=== PATIENT | male | born 1940 | race Caucasian/White ===

== ENCOUNTER 2019-04-05 06:07 | Day surgery (SDC) | payer MEDICARE, BC ==
[2019-04-05] MEDS: Sodium Chloride 0.9% 1,000 ML IV SCH (07:07)
[2019-04-05] MEDS ORDERED: Propofol 200 MG/20 ML SDV ONE (07:38)
[2019-04-05] MEDS ORDERED: fentaNYL 100 MCG/2 ML SDV ONE (07:38)
[2019-04-05] MEDS: ceFAZolin 2 GM in Premix Bag 1 BAG IV ONE (07:45)
[2019-04-05] MEDS: Bupivacaine 0.5% 50 ML MDV INJECT ONE (08:03)
[2019-04-05] MEDS: Lidocaine 1% with EPINEPHrine 1:100,000 50 ML MDV INJECT ONE (08:03)
[2019-04-05 09:59] VITALS: BP 134/80
--- NOTE | 2019-04-09 07:57 | OR ---
DATE OF PROCEDURE: 04/05/2019 SURGEON: Lenin Mcmullen MD PROCEDURES: 1. Excision of posterior scalp lesion, 7.1 cm x 2.0 cm, squamous cell carcinoma (99675). 2. 4 mm excisional biopsy, anterior scalp. COMPLICATION: None. WEB PRODUCTION ARTIST: None. ANESTHESIA: MAC/local. RISKS: Risks, benefits, alternatives, and limitations including, but limited to infection, bleeding, and requirement for reoperation for additional margins, false positives and false negatives, and other risks not listed here were explained to the patient, who wished to proceed. PROCEDURE IN DETAIL: The patient was placed in a supine position. The anterior marked lesion was identified and anesthetized with 1% lidocaine mixed with Marcaine. First, 4 mm punch biopsy was performed. This was excised using 11 blade. This was then closed with 2 interrupted 3-0 Prolene sutures. The posterior lesion was then identified next. This would be excised full thickness down to the galea, as measured above. This was then marked with the double stitch left and single stitch anterior margins prior, before excision. This was then thoroughly irrigated. Simple flaps were then created to decrease the skin tension. These skin flaps were created by using electrocautery. This wound was then closed with 3-0 Vicryl in two layers and then a 4-0 Prolene in a running/interrupted fashion. A horizontal mattress suture was also placed using a 3-0 nylon suture. Border Lite dressings were then applied. The patient tolerated the procedure well. Lenin Mcmullen MD /[id number]
== END 2019-04-05 09:45 | disposition home or self-care (01) ==
LOC: JP.SDS 06:07
PROVIDERS: ATTEND Surgery
DX: D04.4 Carcinoma in situ of skin of scalp and neck (principal); L98.8 Other specified disorders of the skin and subcutaneous tissue; G47.33 Obstructive sleep apnea (adult) (pediatric); E78.5 Hyperlipidemia, unspecified; I25.10 Atherosclerotic heart disease of native coronary artery without angina pectoris; I12.9 Hypertensive chronic kidney disease with stage 1 through stage 4 chronic kidney disease, or unspecified chronic kidney disease; E11.22 Type 2 diabetes mellitus with diabetic chronic kidney disease; N18.3 Chronic kidney disease, stage 3 (moderate); E66.01 Morbid (severe) obesity due to excess calories; Z68.42 Body mass index [BMI] 45.0-49.9, adult; F41.9 Anxiety disorder, unspecified; G51.0 Bell's palsy; G62.9 Polyneuropathy, unspecified; Z79.4 Long term (current) use of insulin; Z88.6 Allergy status to analgesic agent; Z99.89 Dependence on other enabling machines and devices
CPT/HCPCS: 82962; 88305; J0690; J2704; J3010; J3490; J7030

== ENCOUNTER 2021-06-04 14:29 | Emergency (ER) | payer MEDICARE, BC ==
--- NOTE | 2021-06-04 16:57 | EDM.PDOC ---
ED HPI GENERAL MEDICAL PROBLEM - General Chief Complaint: Gastrointestinal Problem Stated Complaint: STOMACH ISSUES Time Seen by Provider: 06/04/21 16:20 Source of Information: Reports: Patient, Family, RN History Limitations: Reports: No Limitations - History of Present Illness INITIAL COMMENTS - FREE TEXT/NARRATIVE: 80 year old male presenting with abnormal lab results. The patient does not really know why he is here, but states the clinic called and told him to go to the ER. He reports that he has been having some GI issues recently with weight loss and trouble swallowing his pills, but states they changed his medications and he actually felt like he could swallow his pills normally today without any Gi upset. He has no other complaints at this time. Discussed the patient with Rosana Pérez PA-C, who told the patient to come to the ED due to worsening kidney function. He has had a slow increase in his creatinine and she sent him in for IVF. The patient states he is having normal urine output. Reports he is incontinent of urine, but has been having a normal amount of output. He reports he is eating and drinking normally without any issues and feels fine. Onset: Unknown/Unsure Duration: Getting Worse Improves with: Reports: None Worsens with: Reports: None Associated Symptoms: Reports: No Other Symptoms Abdominal Pain Score (Numeric/FACES): 0 (Feeling better now) - Related Data Allergies Allergy/AdvReac Type Severity Reaction Status Date / Time colchicine Allergy Indigestion Verified 06/04/21 16:44 Home Meds: Home Meds Aspirin [Low Dose Aspirin EC] 81 mg PO DAILY 11/25/16 [History] Dulaglutide [Trulicity] 1.5 mg SQ WEEKLY 11/25/16 [History] Furosemide [Lasix] 20 mg PO BID 11/25/16 [History] Gabapentin [Neurontin] 200 mg PO DAILY 11/25/16 [History] Metoprolol Tartrate 50 mg PO BID 11/25/16 [History] [place]-3 Fatty Acids [Fish Oil] 1,000 mg PO DAILY 11/25/16 [History] Probenecid 1,000 mg PO BID 11/25/16 [History] Tamsulosin [Tamsulosin 24 Hr] 0.4 mg PO DAILY 11/25/16 [History] diphenhydrAMINE [Benadryl] 50 mg PO DAILY PRN 11/25/16 [History] Potassium Chloride 20 meq PO DAILY 11/29/16 [History] metFORMIN HCl [Metformin HCl] 500 mg PO BID 11/29/16 [History] Acetaminophen [Acetaminophen Extra Strength] 1,000 mg PO BEDTIME 04/03/19 [History] Clopidogrel Bisulfate [Plavix] 75 mg PO DAILY 04/03/19 [History] Cranberry 500 mg PO DAILY 04/03/19 [History] Cyanocobalamin (Vitamin B12) [Vitamin B12] 2,000 mcg PO DAILY 04/03/19 [History] Magnesium Oxide 400 mg PO BID 04/03/19 [History] Nitroglycerin 0.4 mg SL ASDIRECTED 04/03/19 [History] atorvaSTATin [Lipitor] 80 mg PO DAILY 04/03/19 [History] buPROPion [Wellbutrin] 100 mg PO BID 04/03/19 [History] Amoxicillin 2,000 mg PO ASDIRECTED 05/03/21 [History] Gabapentin [Neurontin] 200 mg PO DAILY 05/03/21 [History] Losartan [Cozaar] 100 mg PO DAILY 05/03/21 [History] Pantoprazole Sodium [Protonix] 40 mg PO DAILY 05/03/21 [History] Pseudoephedrine HCl [Sudafed] 30 mg PO Q4H PRN 05/03/21 [History] polyethylene glycoL 3350 [MiraLAX] 17 gm PO DAILY PRN 05/03/21 [History] Past Medical History HEENT History: Reports: Allergic Rhinitis, Hard of Hearing, Impaired Vision Cardiovascular History: Reports: Heart Failure, Heart Valve Replacement, High Cholesterol, Hypertension, [place] Respiratory History: Reports: Asthma, Sleep Apnea Gastrointestinal History: Reports: Colon Polyp, Gastritis, GERD Genitourinary History: Reports: Diabetic Nephropathy Musculoskeletal History: Reports: Gout, Osteoarthritis, Other (See Below) Other Musculoskeletal History: R hip pain Neurological History: Reports: Concussion Other Neuro History: belspalsy 8 years ago Endocrine/Metabolic History: Reports: Diabetes, Type II, IDDM, Obesity/BMI 30+ Hematologic History: Reports: Blood Transfusion(s) Oncologic (Cancer) History: Reports: Squamous Cell Carcinoma Dermatologic History: Reports: Eczema - Infectious Disease History Infectious Disease History: Reports: Chicken Pox, Measles - Past Surgical History HEENT Surgical History: Reports: Tonsillectomy Cardiovascular Surgical History: Reports: Coronary Artery Stent, Valve Replacement, Other (See Below) Other Cardiovascular Surgeries/Procedures: aorta valve replacement 2 years ago Respiratory Surgical History: Reports: None GI Surgical History: Reports: Colonoscopy Male Surgical History: Reports: None Neurological Surgical History: Reports: None Musculoskeletal Surgical History: Reports: Knee Replacement, Other (See Below) Other Musculoskeletal Surgeries/Procedures:: knee replacement x2 Oncologic Surgical History: Reports: Other (See Below) Other Oncologic Surgeries/Procedures: Scalp excision squamous cell cancer Social & Family History - Family History Family Medical History: No Pertinent Family History - Caffeine Use Caffeine Use: Reports: None ED ROS GENERAL - Review of Systems Review Of Systems: Comprehensive ROS is negative, except as noted in HPI. ED EXAM, GENERAL - Physical Exam Exam: See Below Exam Limited By: No Limitations General Appearance: Alert, No Apparent Distress Nose: Normal Inspection Throat/Mouth: Normal Inspection, Other (MMM) Head: Atraumatic, Normocephalic Neck: Supple, Non-Tender, Full Range of Motion Respiratory/Chest: No Respiratory Distress, Lungs Clear, Normal Breath Sounds, No Accessory Muscle Use Cardiovascular: Normal Peripheral Pulses, Regular Rate, Rhythm GI/Abdominal: Soft, Non-Tender Extremities: Normal Range of Motion Neurological: Alert, Oriented, CN II-XII Intact, Normal Cognition, No Motor/Sensory Deficits Psychiatric: Normal Affect, Normal Mood Skin Exam: Warm, Dry Course - Vital Signs Last Recorded V/S: Last Vital Signs Temp 96.8 F L 06/04/21 17:13 Pulse 65 06/04/21 17:37 Resp 12 06/04/21 17:13 BP 95/60 06/04/21 17:37 Pulse Ox 97 06/04/21 17:37 - Orders/Labs/Meds Labs: Laboratory Tests 06/04/21 06/04/21 Range/Units 17:22 17:22 WBC 6.6 (4.5-11.0) K/uL RBC 4.09 L (4.30-5.90) M/uL Hgb 12.8 (12.0-15.0) g/dL Hct 38.8 L (40.0-54.0) % MCV 95 (80-98) fL MCH 31 (27-31) pg MCHC 33 (32-36) % Plt Count 159 (150-400) K/uL Neut % (Auto) 63.4 (36-66) % Lymph % (Auto) 20.1 L (24-44) % [place] % (Auto) 14.5 H (2-6) % Eos % (Auto) 1.5 L (2-4) % Baso % (Auto) 0.5 (0-1) % Sodium 143 (140-148) mmol/L Potassium 4.1 (3.6-5.2) mmol/L Chloride 103 (100-108) mmol/L Carbon Dioxide 33 H (21-32) mmol/L Anion Gap 11.1 (5.0-14.0) mmol/L BUN 38 H (7-18) mg/dL Creatinine 3.0 H (0.8-1.3) mg/dL Est Cr Clr Drug Dosing 20.92 mL/min Estimated GFR (MDRD) 20 L (>60) Glucose 98 (74-106) mg/dL Calcium 9.1 (8.5-10.1) mg/dL Total Bilirubin 0.6 (0.2-1.0) mg/dL AST 16 (15-37) U/L ALT 13 (12-78) U/L Alkaline Phosphatase 105 (46-116) U/L Total Protein 7.3 (6.4-8.2) g/dL Albumin 3.3 L (3.4-5.0) g/dL Globulin 4.0 H (2.3-3.5) g/dL Albumin/Globulin Ratio 0.8 L (1.2-2.2) Meds: Medications Discontinued Medications Generic Name Dose Route Start Last Admin Trade Name Freq PRN Reason Stop Dose Admin Sodium Chloride 1,000 mls @ 1,000 mls/hr 06/04/21 18:15 06/04/21 18:09 Normal Saline IV 1,000 mls/hr ASDIRECTED ANI Administration Departure - Departure Time of Disposition: 20:01 Disposition: Home, Self-Care 01 Condition: Good Clinical Impression: Creatinine elevation, [id number] kidney injury - Discharge Information Instructions: Acute Kidney Injury, Adult Referrals: Xander Ibarra MD [Primary Care Provider] - Forms: ED Department Discharge Additional Instructions: Follow up with your primary care provider as already scheduled on Monday to recheck your kidney function. Sepsis Event Note (ED) - Focused Exam Vital Signs: Vital Signs Temp Pulse Resp BP Pulse Ox 07/23/21 17:37 65 95/60 97 07/23/21 17:13 96.8 F L 63 12 100/50 L 98 06/04/21 16:58 63 12 100/50 L 98 06/04/21 16:07 96.8 F L 66 16 89/44 L 98 - Problem List Review Problem List Initiated/Reviewed/Updated: Yes - Assessment/Plan Assessment:: This is an 80 year old male presenting due to abnormal labs from the clinic. Patient has no complaints today and doesn't know why he is here. His initial BP was low with systolic in the 80's. An appropriately sized cuff was used to recheck and systolic was in the 100's which patient states is normal for him and he is asymptomatic at this time. I discussed the patient with ILIANA Bermudez, who sent the patient to the ED due to worsening creatinine and IVF therapy. I was able to review his recent labs. His creatinine in January of this year was 2.0, then 2.5 yesterday, and 2.88 today. Creatinine in the ED today is 3.0. While his kidney function is certainly worsening, there is no indication for urgent dialysis. I will give him a liter of IVF in the ED today, though I'm not convinced this will improve his renal function. He needs follow up in clinic for further evaluation of what his driving this decline, which he already has scheduled for Monday. He has no other complaints or concerning findings today to indicate need for additional evaluation. He will be discharged home with follow on Monday as scheduled. He was instructed to return to the ED for any new or worsening symptoms.
[2021-06-04 17:37] VITALS: BP 95/60; PULSE 65
[2021-06-04] MEDS ORDERED: Sodium Chloride 0.9% 1,000 ML IV SCH (18:15)
== END 2021-06-04 19:31 | disposition home or self-care (01) ==
LOC: JP.ED 14:29
DX: N17.9 Acute kidney failure, unspecified (principal); I13.0 Hypertensive heart and chronic kidney disease with heart failure and stage 1 through stage 4 chronic kidney disease, or unspecified chronic kidney disease; E11.22 Type 2 diabetes mellitus with diabetic chronic kidney disease; N18.9 Chronic kidney disease, unspecified; I50.9 Heart failure, unspecified; I25.2 Old myocardial infarction; E78.00 Pure hypercholesterolemia, unspecified; K21.9 Gastro-esophageal reflux disease without esophagitis; R94.4 Abnormal results of kidney function studies; E66.9 Obesity, unspecified; Z68.30 Body mass index [BMI] 30.0-30.9, adult; Z88.6 Allergy status to analgesic agent; Z79.82 Long term (current) use of aspirin; Z79.84 Long term (current) use of oral hypoglycemic drugs; Z79.02 Long term (current) use of antithrombotics/antiplatelets
CPT/HCPCS: 36415; 80053; 85025; 99283; J7030

== ENCOUNTER 2021-06-29 23:57 | Observation (INO) | payer MEDICARE, BC ==
[2021-06-30] MEDS ORDERED: Sodium Chloride 0.9% 1,000 ML IV SCH ×2 (00:45→02:30)
--- NOTE | 2021-06-30 00:45 | EDM.PDOC ---
ED HPI GENERAL MEDICAL PROBLEM - General Chief Complaint: Lower Extremity Injury/Pain Stated Complaint: MEDICAL VIA [facility] Time Seen by Provider: 06/30/21 00:39 Source of Information: Reports: Patient History Limitations: Reports: No Limitations - History of Present Illness INITIAL COMMENTS - FREE TEXT/NARRATIVE: pt got up without his cane and lost his balance. He now has some increased pain in the rt hip. He was also found to have quite a low bp when the ambulance arrived. Onset: Today, Sudden Duration: Hour(s): Location: Reports: Lower Extremity, Right, Other (pt did not hit his head. He is resting quite comfortable at this time. ) Associated Symptoms: Reports: No Other Symptoms Right Hip Pain Score (Numeric/FACES): 2 - Related Data Allergies Allergy/AdvReac Type Severity Reaction Status Date / Time colchicine Allergy Indigestion Verified 06/04/21 16:44 Home Meds: Home Meds Aspirin [Low Dose Aspirin EC] 81 mg PO DAILY 11/25/16 [History] Dulaglutide [Trulicity] 1.5 mg SQ WEEKLY 11/25/16 [History] Furosemide [Lasix] 20 mg PO BID 11/25/16 [History] Metoprolol Tartrate 50 mg PO BID 11/25/16 [History] [place]-3 Fatty Acids [Fish Oil] 1,000 mg PO DAILY 11/25/16 [History] Probenecid 1,000 mg PO BID 11/25/16 [History] Tamsulosin [Tamsulosin 24 Hr] 0.4 mg PO DAILY 11/25/16 [History] diphenhydrAMINE [Benadryl] 50 mg PO DAILY PRN 11/25/16 [History] Potassium Chloride 20 meq PO DAILY 11/29/16 [History] metFORMIN HCl [Metformin HCl] 250 mg PO BID 11/29/16 [History] Acetaminophen [Acetaminophen Extra Strength] 1,000 mg PO BEDTIME 04/03/19 [History] Clopidogrel Bisulfate [Plavix] 75 mg PO DAILY 04/03/19 [History] Cranberry 500 mg PO DAILY 04/03/19 [History] Cyanocobalamin (Vitamin B12) [Vitamin B12] 2,000 mcg PO DAILY 04/03/19 [History] Magnesium Oxide 400 mg PO BID 04/03/19 [History] Nitroglycerin 0.4 mg SL ASDIRECTED 04/03/19 [History] atorvaSTATin [Lipitor] 80 mg PO DAILY 04/03/19 [History] buPROPion [Wellbutrin] 100 mg PO BID 04/03/19 [History] Amoxicillin 2,000 mg PO ASDIRECTED 05/03/21 [History] Gabapentin [Neurontin] 200 mg PO DAILY PRN 05/03/21 [History] Losartan [Cozaar] 100 mg PO DAILY 05/03/21 [History] Pantoprazole Sodium [Protonix] 40 mg PO DAILY 05/03/21 [History] Pseudoephedrine HCl [Sudafed] 30 mg PO Q4H PRN 05/03/21 [History] polyethylene glycoL 3350 [MiraLAX] 17 gm PO DAILY PRN 05/03/21 [History] Diclofenac Sodium [Voltaren 1% Gel] 1 applic TOP TID PRN #1 tube 06/24/21 [Rx] Past Medical History HEENT History: Reports: Allergic Rhinitis, Hard of Hearing, Impaired Vision Cardiovascular History: Reports: Heart Failure, Heart Valve Replacement, High Cholesterol, Hypertension, [place] Respiratory History: Reports: Asthma, Sleep Apnea Gastrointestinal History: Reports: Colon Polyp, Gastritis, GERD Genitourinary History: Reports: Diabetic Nephropathy Musculoskeletal History: Reports: Gout, Osteoarthritis, Other (See Below) Other Musculoskeletal History: R hip pain Neurological History: Reports: Concussion, Other (See Below) Other Neuro History: bells palsy 8 years ago Endocrine/Metabolic History: Reports: Diabetes, Type II, IDDM, Obesity/BMI 30+ Hematologic History: Reports: Blood Transfusion(s) Oncologic (Cancer) History: Reports: Squamous Cell Carcinoma Dermatologic History: Reports: Eczema - Infectious Disease History Infectious Disease History: Reports: Chicken Pox, Measles - Past Surgical History HEENT Surgical History: Reports: Tonsillectomy Cardiovascular Surgical History: Reports: Coronary Artery Stent, Valve Replacement, Other (See Below) Other Cardiovascular Surgeries/Procedures: aorta valve replacement 2 years ago Respiratory Surgical History: Reports: None GI Surgical History: Reports: Colonoscopy Male Surgical History: Reports: None Neurological Surgical History: Reports: None Musculoskeletal Surgical History: Reports: Knee Replacement, Other (See Below) Other Musculoskeletal Surgeries/Procedures:: knee replacement x2 Oncologic Surgical History: Reports: Other (See Below) Other Oncologic Surgeries/Procedures: Scalp excision squamous cell cancer Social & Family History - Family History Family Medical History: No Pertinent Family History - Tobacco Use Tobacco Use Status *Q: Never Tobacco User - Caffeine Use Caffeine Use: Reports: Coffee - Recreational Drug Use Recreational Drug Use: No Review of Systems - Review of Systems Review Of Systems: See Below Constitutional: Reports: No Symptoms Eyes: Reports: No Symptoms Ears: Reports: No Symptoms Nose: Reports: No Symptoms Mouth/Throat: Reports: No Symptoms Respiratory: Reports: No Symptoms Cardiovascular: Reports: No Symptoms GI/Abdominal: Reports: No Symptoms Genitourinary: Reports: No Symptoms Musculoskeletal: Reports: Other (pain in the rt hip which Dr Strong is seeing. ) Neurological: Reports: Dizziness, Other ( bp was on the low side. ) ED EXAM, GENERAL - Physical Exam Exam: See Below Free Text/Narrative:: pt arrived with pain in his rt hip after faslling at home. Exam Limited By: No Limitations General Appearance: Alert, Anxious, Moderate Distress Ears: Normal TMs Nose: Normal Inspection Throat/Mouth: Normal Inspection Head: Atraumatic Neck: Normal Inspection Respiratory/Chest: No Respiratory Distress Cardiovascular: Regular Rate, Rhythm, Other ( bp is low. ) GI/Abdominal: Soft, Non-Tender (Male) Exam: Deferred Rectal (Males) Exam: Deferred Back Exam: Normal Inspection Extremities: Other (pt is tenderover the rt hip. His bp is around 100 now. ) Neurological: Alert, Normal Cognition Course - Vital Signs Last Recorded V/S: Last Vital Signs Temp 37.3 C 06/30/21 00:18 Pulse 79 06/30/21 00:18 Resp 16 06/30/21 00:18 BP 106/53 L 06/30/21 00:18 Pulse Ox 96 06/30/21 00:18 - Orders/Labs/Meds Orders: Active Orders 24 hr Category Date Time Status Hip Min 2V or 3V w Pelvis Rt [CR] Stat Exams 06/30/21 00:37 Taken UA W/MICROSCOPIC [URIN] Urgent Lab 06/30/21 00:32 Ordered Sodium Chloride 0.9% [Normal Saline] 1,000 ml Med 06/30/21 00:45 Active IV ASDIRECTED Sodium Chloride 0.9% [Normal Saline] 1,000 ml Med 06/30/21 02:30 Active IV ASDIRECTED Medication Orders Sodium Chloride (Normal Saline) 1,000 mls @ 500 mls/hr IV ASDIRECTED ANI Last Admin: 06/30/21 00:45 Dose: 500 mls/hr Documented by: RADHA Sodium Chloride (Normal Saline) 1,000 mls @ 200 mls/hr IV ASDIRECTED [facility] Labs: Laboratory Tests 06/30/21 06/30/21 Range/Units 00:50 00:50 WBC 9.1 (4.5-11.0) K/uL RBC 3.47 L (4.30-5.90) M/uL Hgb 10.8 L D (12.0-15.0) g/dL Hct 32.8 L (40.0-54.0) % MCV 95 (80-98) fL MCH 31 (27-31) pg MCHC 33 (32-36) % Plt Count 134 L (150-400) K/uL Neut % (Auto) 84.7 H (36-66) % Lymph % (Auto) 8.0 L (24-44) % [place] % (Auto) 7.1 H (2-6) % Eos % (Auto) 0.1 L (2-4) % Baso % (Auto) 0.1 (0-1) % Sodium 140 (140-148) mmol/L Potassium 3.8 (3.6-5.2) mmol/L Chloride 102 (100-108) mmol/L Carbon Dioxide 28 (21-32) mmol/L Anion Gap 9.9 (5.0-14.0) mmol/L BUN 28 H (7-18) mg/dL Creatinine 2.4 H (0.8-1.3) mg/dL Est Cr Clr Drug Dosing 26.15 mL/min Estimated GFR (MDRD) 26 L (>60) Glucose 122 H (74-106) mg/dL Calcium 8.3 L (8.5-10.1) mg/dL Total Bilirubin 0.6 (0.2-1.0) mg/dL AST 14 L (15-37) U/L ALT 10 L (12-78) U/L Alkaline Phosphatase 93 (46-116) U/L Total Protein 6.3 L (6.4-8.2) g/dL Albumin 2.6 L (3.4-5.0) g/dL Globulin 3.7 H (2.3-3.5) g/dL Albumin/Globulin Ratio 0.7 L (1.2-2.2) Meds: Medications Generic Name Dose Route Start Last Admin Trade Name Eilsha PRN Reason Stop Dose Admin Sodium Chloride 1,000 mls @ 500 mls/hr 06/30/21 00:45 06/30/21 00:45 Normal Saline IV 500 mls/hr ASDIRECTED ANI Administration Sodium Chloride 1,000 mls @ 200 mls/hr 06/30/21 02:30 Normal Saline IV ASDIRECTED ANI - Re-Assessments/Exams Free Text/Narrative Re-Assessment/Exam: 06/30/21 02:33 xrays revealed no fracture. He does have alot of degenerative changes. He is uing medication externally on his hip that Dr Guidry has given him which has been helpful. He has chronic kidney diease. Departure - Departure Time of Disposition: 02:35 Condition: Fair Clinical Impression: Hypotension, Dehydration, Chronic hip pain, Renal insufficiency - Discharge Information Referrals: Xander Ibarra MD [Primary Care Provider] - Forms: ED Department Discharge Care Plan Goals: admit to Dr Malloy. Sepsis Event Note (ED) - Evaluation Sepsis Screening Result: No Definite Risk - Focused Exam Vital Signs: Vital Signs Temp Pulse Resp BP Pulse Ox 06/30/21 00:18 37.3 C 79 16 106/53 L 96 06/30/21 00:08 37.3 C 79 16 106/53 L 96 - My Orders Last 24 Hours: My Active Orders 06/30/21 00:32 UA W/MICROSCOPIC [URIN] Urgent 06/30/21 00:37 Hip Min 2V or 3V w Pelvis Rt [CR] Stat 06/30/21 00:45 Sodium Chloride 0.9% [Normal Saline] 1,000 ml IV ASDIRECTED 06/30/21 02:30 Sodium Chloride 0.9% [Normal Saline] 1,000 ml IV ASDIRECTED - Assessment/Plan Last 24 Hours: My Active Orders 06/30/21 00:32 UA W/MICROSCOPIC [URIN] Urgent 06/30/21 00:37 Hip Min 2V or 3V w Pelvis Rt [CR] Stat 06/30/21 00:45 Sodium Chloride 0.9% [Normal Saline] 1,000 ml IV ASDIRECTED 06/30/21 02:30 Sodium Chloride 0.9% [Normal Saline] 1,000 ml IV ASDIRECTED
[2021-06-30] MEDS ORDERED: Polyethylene Glycol 3350 Powder 17 GM Packet PO PRN (03:45)
[2021-06-30] MEDS ORDERED: Diclofenac Sodium 1% Gel 100 GM Tube TOP PRN (03:45)
[2021-06-30] MEDS ORDERED: Nitroglycerin 0.4 MG Tab.SL SL SCH (03:45)
[2021-06-30] MEDS ORDERED: Gabapentin 100 MG Cap PO PRN (03:45)
[2021-06-30] MEDS ORDERED: diphenhydrAMINE 25 MG Cap PO PRN (04:21)
[2021-06-30] MEDS ORDERED: Pantoprazole 40 MG Tab.CR PO SCH ×2 (07:30→09:00)
[2021-06-30] MEDS ORDERED: buPROPion 100 MG Tab PO SCH (09:00)
[2021-06-30] MEDS ORDERED: Metoprolol Tartrate 50 MG Tab PO SCH (09:00)
[2021-06-30] MEDS ORDERED: Magnesium Oxide 400 MG Tab PO SCH (09:00)
[2021-06-30] MEDS ORDERED: Tamsulosin 0.4 MG Cap.ER PO SCH (09:00)
[2021-06-30] MEDS ORDERED: Potassium Chloride 10 MEQ Cap.ER PO SCH (09:00)
[2021-06-30] MEDS ORDERED: Aspirin 81 MG Tab.EC PO SCH (09:00)
[2021-06-30] MEDS ORDERED: atorvaSTATin 20 MG Tab PO SCH (09:00)
[2021-06-30] MEDS ORDERED: Clopidogrel 75 MG Tab PO SCH (09:00)
--- NOTE | 2021-06-30 09:44 | CR ---
Hip Min 2V or 3V w Pelvis Rt CLINICAL HISTORY: Right hip pain FINDINGS: There is a large area of soft tissue ossification inferior lateral to the trochanter. No fractures identified. There is no dislocation. There is some spurring at the ligamentous insertions at the issue IMPRESSION: No acute fracture Large area of myositis ossificans inferior lateral to the trochanteric region of the femur With scarring of the ischium can be seen with DISH
[2021-06-30 16:36] VITALS: BP 108/53; PULSE 70
--- NOTE | 2021-06-30 17:52 | CRLMR ---
For Patients: As a result of the Century Cures Act, medical imaging exams and procedure reports are released immediately into your electronic medical record. You may view this report before your referring provider. If you have questions, please contact your health care provider. HISTORY: Right hip pain. TECHNIQUE: Noncontrast MRI of the right hip. COMPARISON: No prior. FINDINGS: Right hip: Degenerative changes of the right hip. There are small areas of subchondral cystic change and marrow edema involving the anterior superior and superior lateral acetabulum which likely indicates presence of underlying full-thickness grade 4 cartilage loss. Moderate grade cartilage wear of the femoral head (grade 2/3). There is extensive degenerative acetabular labral tearing. For example, anterior superior acetabular labral tearing is noted on sagittal PD fat-sat image #24 series 7. No right hip joint effusion. No avascular necrosis of right femoral head. - Left hip: Degenerative changes of the left hip. Probable areas of grade 4 acetabular chondromalacia anterosuperiorly and superolaterally. Small area of high-grade up to full-thickness cartilage loss involving the femoral head superomedially (grade 4). No left hip joint effusion. - Osseous structures: There is no acute fracture or pathologic marrow replacement process. No avascular necrosis. - Musculotendinous structures and bursae: Probable sequelae of remote injury involving the right gluteus loyd lateral muscle and distal tendon, possibly with foci of heterotopic ossification present. No acute gluteal tendon or muscle injury and. There is tendinosis of the bilateral common hamstring tendons. The distal iliopsoas tendons are intact. - Other findings: Mid degenerative changes of the pubic symphysis and sacroiliac joints. Degenerative changes within the lower lumbar spine and at the lumbosacral junction. - Intrapelvic soft tissues: Enlarged prostate. Small bilateral fat containing inguinal hernias. IMPRESSION: 1. No acute fracture. 2. 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 3. Sequelae of remote injury of the right gluteus loyd muscle laterally and its distal tendon, possibly with heterotopic ossification present. No acute gluteal tendon tear. Dictated by Chris Mills MD @ 07/01/2021 7:08:[address] Chris Mills @ Jul 01 2021 7:08AM
[2021-06-30] MEDS ORDERED: metFORMIN 500 MG Tab PO SCH (18:00)
--- NOTE | 2021-06-30 18:19 | PCM.DCSUM1 ---
Discharge Summary - Hospital Course Brief History: Mr. Stern is an 80-year-old gentleman who was admitted to observation status through the emergency department with acute on chronic right hip pain following a fall. - Discharge Data Discharge Date: 06/30/21 Discharge Disposition: Home, Self-Care 01 Condition: Fair - Referral to Home Health Primary Care Physician: Xander Ibarra MD - Discharge Diagnosis/Problem(s) (1) Hypotension SNOMED Code(s): 34662784 ICD Code: I95.9 - HYPOTENSION, UNSPECIFIED Status: Acute Current Visit: Yes (2) Chronic hip pain SNOMED Code(s): 70146701 ICD Code: M25.559 - PAIN IN UNSPECIFIED HIP; G89.29 - OTHER CHRONIC PAIN Status: Acute Current Visit: Yes (3) CKD (chronic kidney disease), stage III SNOMED Code(s): 125180087 ICD Code: N18.30 - CHRONIC KIDNEY DISEASE, STAGE 3 UNSPECIFIED Status: Chr onic Current Visit: No (4) Type 2 diabetes mellitus SNOMED Code(s): 49642267 ICD Code: E11.9 - TYPE 2 DIABETES MELLITUS WITHOUT COMPLICATIONS Status: Chronic Current Visit: No - Patient Summary/Data Consults: Consultations 06/30/21 03:41 Consult to Physical Therapy [PT Evaluation and Treatment] [CONS] Routine Please Evaluate and Treat. PT Reason for Consult: hip pain following fall This query below is only for informational purposes and is not editable. Admission Diagnosis/Problem: Hip pain 06/30/21 04:22 Consult to Orthopedic Clinic [CONS] Routine Comment: Physician Instructions: Request review of right hip pain by Dr Guidry [facility] Course: Mr. Stern is an 80-year-old gentleman who was admitted through the emergency department with acute on chronic hip pain following a fall at home. He has had ongoing difficulty with pain in his right hip, felt to be secondary to trochanteric bursitis. Pain has been very severe and his significantly limited his activity. He has been seen in the orthopedic clinic for ongoing management and follow-up. He had significant pain when standing up and fell. X-ray obtained in the emergency department shows no acute fracture. Pain had significantly improved by the following morning. He has a known history of diabetes and was continued on his usual medication while hospitalized. Blood pressure was low on initial arrival to the emergency department but did improve with IV fluids. He was seen and evaluated by Dr. Guidry and an MRI was obtained. MRI showed no evidence of fracture and only mild osteoarthritis. Because he is feeling better and has been able to ambulate in the hallways he requests discharged home this evening and will follow up as an outpatient with Dr. Guidry. He will use a walker at home to help improve his stability. Activity will otherwise be as tolerated and he will remain on a diabetic diet. - Patient Instructions Diet: Diabetic Diet Activity: As Tolerated Other/Special Instructions: Follow-up with Dr. Guidry as previously scheduled - Discharge Plan *PRESCRIPTION DRUG MONITORING PROGRAM REVIEWED*: Not Applicable *COPY OF PRESCRIPTION DRUG MONITORING REPORT IN PATIENT DEMETRICE: Not Applicable Home Medications: Home Meds Aspirin [Low Dose Aspirin EC] 81 mg PO DAILY 11/25/16 [History] Dulaglutide [Trulicity] 1.5 mg SQ WEEKLY 11/25/16 [History] Furosemide [Lasix] 40 mg PO DAILY 11/25/16 [History] Metoprolol Tartrate 50 mg PO BID 11/25/16 [History] [place]-3 Fatty Acids [Fish Oil] 1,000 mg PO DAILY 11/25/16 [History] Probenecid 500 mg PO BID 11/25/16 [History] Tamsulosin [Flomax] 0.4 mg PO DAILY 11/25/16 [History] diphenhydrAMINE [Benadryl] 50 mg PO BEDTIME PRN 11/25/16 [History] Potassium Chloride 20 meq PO DAILY 11/29/16 [History] metFORMIN HCl [Metformin HCl] 250 mg PO ACBREAKFAST 11/29/16 [History] Acetaminophen [Acetaminophen Extra Strength] 1,000 mg PO BEDTIME 04/03/19 [History] Clopidogrel Bisulfate [Plavix] 75 mg PO DAILY 04/03/19 [History] Cranberry 500 mg PO DAILY 04/03/19 [History] Cyanocobalamin (Vitamin B12) [Vitamin B12] 2,000 mcg PO DAILY 04/03/19 [History] Magnesium Oxide 400 mg PO BID 04/03/19 [History] Nitroglycerin 0.4 mg SL ASDIRECTED 04/03/19 [History] atorvaSTATin [Lipitor] 40 mg PO DAILY 04/03/19 [History] Amoxicillin 2,000 mg PO ASDIRECTED 05/03/21 [History] Gabapentin [Neurontin] 200 mg PO PCDINNER PRN 05/03/21 [History] Losartan [Cozaar] 100 mg PO DAILY 05/03/21 [History] Pantoprazole Sodium [Protonix] 40 mg PO DAILY 05/03/21 [History] Pseudoephedrine HCl [Sudafed] 30 mg PO Q4H PRN 05/03/21 [History] polyethylene glycoL 3350 [MiraLAX] 17 gm PO DAILY PRN 05/03/21 [History] Diclofenac Sodium [Voltaren 1% Gel] 1 applic TOP TID PRN #1 tube 06/24/21 [Rx] Furosemide 20 mg PO PCLUNCH 06/30/21 [History] Gabapentin [Neurontin] 100 mg PO DAILY 06/30/21 [History] Lactobacillus Acidophilus [Probiotic] 1 tab PO DAILY 06/30/21 [History] Naltrexone 25 mg PO BID 06/30/21 [History] Ondansetron [Ondansetron ODT] 4 mg PO Q8H PRN 06/30/21 [History] buPROPion [Wellbutrin] 100 mg PO BID 06/30/21 [History] Referrals: Xander Ibarra MD [Primary Care Provider] - Jet Guidry MD [Physician] - 07/06/21 3:30 pm - Discharge Summary/Plan Comment DC Time >30 min.: No Total # of Minutes for Discharge Time: 15 - Patient Data Vitals - Most Recent: Last Vital Signs Temp 97.5 F 06/30/21 16:35 Pulse 70 06/30/21 16:35 Resp 16 06/30/21 16:35 BP 108/53 L 06/30/21 16:35 Pulse Ox 96 06/30/21 16:35 Weight - Most Recent: 286 lb 15.999 oz I&O - Last 24 hours: Intake & Output 06/30/21 06/30/21 06/30/21 06:59 14:59 22:59 Intake Total 595 Output Total 25 Balance 570 Lab Results - Last 24 hrs: Laboratory Results - last 24 hr 06/30/21 06/30/21 06/30/21 Range/Units 00:50 00:50 02:58 WBC 9.1 (4.5-11.0) K/uL RBC 3.47 L (4.30-5.90) M/uL Hgb 10.8 L D (12.0-15.0) g/dL Hct 32.8 L (40.0-54.0) % MCV 95 (80-98) fL MCH 31 (27-31) pg MCHC 33 (32-36) % Plt Count 134 L (150-400) K/uL Neut % (Auto) 84.7 H (36-66) % Lymph % (Auto) 8.0 L (24-44) % [place] % (Auto) 7.1 H (2-6) % Eos % (Auto) 0.1 L (2-4) % Baso % (Auto) 0.1 (0-1) % Sodium 140 (140-148) mmol/L Potassium 3.8 (3.6-5.2) mmol/L Chloride 102 (100-108) mmol/L Carbon Dioxide 28 (21-32) mmol/L Anion Gap 9.9 (5.0-14.0) mmol/L BUN 28 H (7-18) mg/dL Creatinine 2.4 H (0.8-1.3) mg/dL Est Cr Clr Drug Dosing 26.15 mL/min Estimated GFR (MDRD) 26 L (>60) Glucose 122 H (74-106) mg/dL POC Glucose (74-106) mg/dL Calcium 8.3 L (8.5-10.1) mg/dL Total Bilirubin 0.6 (0.2-1.0) mg/dL AST 14 L (15-37) U/L ALT 10 L (12-78) U/L Alkaline Phosphatase 93 (46-116) U/L Total Protein 6.3 L (6.4-8.2) g/dL Albumin 2.6 L (3.4-5.0) g/dL Globulin 3.7 H (2.3-3.5) g/dL Albumin/Globulin Ratio 0.7 L (1.2-2.2) Urine Color Yellow (YELLOW) Urine Appearance Clear (CLEAR) Urine pH 6.5 (5.0-8.0) Ur Specific [place] 1.020 (1.008-1.030) Urine Protein Negative (NEGATIVE) mg/dL Urine Glucose (UA) Negative (NEGATIVE) mg/dL Urine Ketones Negative (NEGATIVE) mg/dL Urine Occult Blood Small H (NEGATIVE) Urine Nitrite Negative (NEGATIVE) Urine Bilirubin Negative (NEGATIVE) Urine Urobilinogen 0.2 (0.2-1.0) EU/dL Ur Leukocyte Esterase Negative (NEGATIVE) Urine RBC 5-10 H (0-5) Urine WBC 0-5 (0-5) Ur Epithelial Cells Few Amorphous Sediment Not seen Urine Bacteria Few Urine Mucus Not seen 06/30/21 06/30/21 Range/Units 07:42 16:55 WBC (4.5-11.0) K/uL RBC (4.30-5.90) M/uL Hgb (12.0-15.0) g/dL Hct (40.0-54.0) % MCV (80-98) fL MCH (27-31) pg MCHC (32-36) % Plt Count (150-400) K/uL Neut % (Auto) (36-66) % Lymph % (Auto) (24-44) % [place] % (Auto) (2-6) % Eos % (Auto) (2-4) % Baso % (Auto) (0-1) % Sodium (140-148) mmol/L Potassium (3.6-5.2) mmol/L Chloride (100-108) mmol/L Carbon Dioxide (21-32) mmol/L Anion Gap (5.0-14.0) mmol/L BUN (7-18) mg/dL Creatinine (0.8-1.3) mg/dL Est Cr Clr Drug Dosing mL/min Estimated GFR (MDRD) (>60) Glucose (74-106) mg/dL POC Glucose 122 H 103 (74-106) mg/dL Calcium (8.5-10.1) mg/dL Total Bilirubin (0.2-1.0) mg/dL AST (15-37) U/L ALT (12-78) U/L Alkaline Phosphatase (46-116) U/L Total Protein (6.4-8.2) g/dL Albumin (3.4-5.0) g/dL Globulin (2.3-3.5) g/dL Albumin/Globulin Ratio (1.2-2.2) Urine Color (YELLOW) Urine Appearance (CLEAR) Urine pH (5.0-8.0) Ur Specific [place] (1.008-1.030) Urine Protein (NEGATIVE) mg/dL Urine Glucose (UA) (NEGATIVE) mg/dL Urine Ketones (NEGATIVE) mg/dL Urine Occult Blood (NEGATIVE) Urine Nitrite (NEGATIVE) Urine Bilirubin (NEGATIVE) Urine Urobilinogen (0.2-1.0) EU/dL Ur Leukocyte Esterase (NEGATIVE) Urine RBC (0-5) Urine WBC (0-5) Ur Epithelial Cells Amorphous Sediment Urine Bacteria Urine Mucus Med Orders - Current: Current Medications Acetaminophen (Acetaminophen 500 Mg Tab) 1,000 mg PO BEDTIME [facility] Aspirin (Aspirin 81 Mg Tab.Ec) 81 mg PO DAILY [facility] Last Admin: 06/30/21 09:26 Dose: 81 mg Documented by: Atorvastatin Calcium (Atorvastatin 20 Mg Tab) 80 mg PO DAILY [facility] Last Admin: 06/30/21 09:27 Dose: 80 mg Documented by: Bupropion HCl (Bupropion 100 Mg Tab) 100 mg PO BID [facility] Last Admin: 06/30/21 09:27 Dose: 100 mg Documented by: Clopidogrel Bisulfate (Clopidogrel 75 Mg Tab) 75 mg PO DAILY [facility] Last Admin: 06/30/21 09:26 Dose: 75 mg Documented by: Diclofenac Sodium (Diclofenac Sodium 1% Gel 100 Gm Tube) 0 gm TOP TID PRN PRN Reason: Pain Diphenhydramine HCl (Diphenhydramine 25 Mg Cap) 25 mg PO BEDTIME PRN PRN Reason: Insomnia Gabapentin (Gabapentin 100 Mg Cap) 200 mg PO DAILY PRN PRN Reason: Other Sodium Chloride (Normal Saline) 1,000 mls @ 500 mls/hr IV ASDIRECTED [facility] Last Admin: 06/30/21 00:45 Dose: 500 mls/hr Documented by: Magnesium Oxide (Magnesium Oxide 400 Mg Tab) 400 mg PO BID [facility] Last Admin: 06/30/21 09:26 Dose: 400 mg Documented by: Metformin HCl (Metformin 500 Mg Tab) 250 mg PO BIDMEALS [facility] Metoprolol Tartrate (Metoprolol Tartrate 50 Mg Tab) 50 mg PO BID [facility] Last Admin: 06/30/21 09:56 Dose: Not Given Documented by: Nitroglycerin (Nitroglycerin 0.4 Mg Tab.Sl) 0.4 mg SL ASDIRECTED [facility] Dulaglutide ( Trulicity) 0.75 Mg/0 .5 Ml)Pom 0 mg SQ Q7D [facility] Probenecid ( Probenecid) 500 Mg TabletPom 0 mg PO BID [facility] Pantoprazole Sodium (Pantoprazole 40 Mg Tab.Cr) 40 mg PO ACBREAKFAST [facility] Last Admin: 06/30/21 07:22 Dose: 40 mg Documented by: Polyethylene Glycol (Polyethylene Glycol 3350 Powder 17 Gm Packet) 17 gm PO DAILY PRN PRN Reason: Constipation Last Admin: 06/30/21 07:22 Dose: 17 gm Documented by: Potassium Chloride (Potassium Chloride 10 Meq Cap.Er) 20 meq PO DAILY [facility] Last Admin: 06/30/21 09:26 Dose: 20 meq Documented by: Tamsulosin HCl (Tamsulosin 0.4 Mg Cap.Er) 0.4 mg PO DAILY [facility] Last Admin: 06/30/21 09:26 Dose: 0.4 mg Documented by: Discontinued Medications Sodium Chloride (Normal Saline) 1,000 mls @ 200 mls/hr IV ASDIRECTED ANI - Exam General: Reports: Alert, Oriented, Cooperative, Mild Distress Lungs: Reports: Clear to Auscultation, Normal Respiratory Effort Cardiovascular: Reports: Regular Rate, Regular Rhythm GI/Abdominal Exam: Soft, Non-Tender, No Organomegaly, No Distention Extremities: Other (Right hip pain)
[2021-06-30] MEDS ORDERED: Acetaminophen 500 MG Tab PO SCH (21:00)
[2021-07-01] MEDS ORDERED: PROBENECID 500 MG PO SCH (09:00)
--- NOTE | 2021-07-02 01:21 | HP ---
IDENTIFYING DATA: Rasheed Stern is an 80-year-old male from [place], [place]. CHIEF COMPLAINT: Right hip pain with fall. HISTORY OF PRESENT ILLNESS: This elderly gentleman has a 1-1/2 year history of pain at the lateral aspect of the right hip and thigh. He reports a remote history of injury as a young adult and has been followed by Orthopedic Services with initial suspicion of arthritic hip change being refuted by x-rays. 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 He has been seen by physical therapy services with little or no improvement on initiation of treatment program. Orthopedics continues to follow him and has advised use of topical diclofenac gel for pain management. He also ambulates with use of a cane as an aide. He reports earlier today he had 3 falls. He denied dizziness, lightheadedness, or loss of consciousness, reporting he simply tripped, and with resultant right hip pain, was unable to rise. He was brought to the emergency room for evaluation and imaging studies. PAST MEDICAL HISTORY: Previous surgeries include total knee arthroplasties, aortic valve replacement with a bovine valve 8 years ago and single-vessel coronary artery stenting for underlying ischemic heart disease. Additional health problems include hypertension, hyperlipidemia, and type 2 diabetes managed with metformin. He reports history of mild asthmatic symptoms and obstructive sleep apnea. Additionally, he has osteoarthritis and hyperuricemia with episodes of gout. HABITS: Nonsmoker. Infrequent use of alcohol. Minimal amounts of caffeine of less than 1 cup per day. ALLERGIES: REPORTED TO COLCHICINE WITH GI UPSET. CURRENT MEDICATIONS: Aspirin 81 mg daily, Trulicity 1.5 mg subcu weekly, furosemide 20 mg b.i.d., metoprolol tartrate 50 mg b.i.d., omega-3 fatty fish oil capsule 1000 mg daily, probenecid 1000 mg b.i.d., tamsulosin 0.4 mg daily, Benadryl 50 mg at h.s. p.r.n. insomnia, potassium chloride 20 mEq daily, metformin 250 mg b.i.d., acetaminophen 1000 mg at h.s., clopidogrel 75 mg daily, cranberry 500 mg tablet daily, vitamin B12 2000 mcg daily, magnesium oxide 400 mg b.i.d., nitroglycerin 0.4 mg sublingually p.r.n. angina, atorvastatin 80 mg daily, bupropion 100 mg b.i.d., gabapentin 200 mg at h.s., losartan 100 mg daily, pantoprazole 40 mg daily, Sudafed 30 mg q.4 hours p.r.n. congestion, MiraLAX 17 g daily p.r.n. constipation, diclofenac gel applied t.i.d. p.r.n. for right hip pain. SOCIAL HISTORY: He is and residing with his in their independent dwelling in [facility]. He performs ADLs independently. His current residence has steps, and though he is able to ascend and descend, he notes this is with some difficulty secondary to hip pain. He does comfortably drive. He reports modest hearing loss. No visual impairment with use of corrective lenses. FAMILY HISTORY: Denies familial history of acute respiratory infections or COVID disease. REVIEW OF SYSTEMS: NEUROLOGIC: Hearing loss. No history of strokes, seizures, focal weakness, or significant visual impairment. Does wear corrective lenses. He has peripheral neuropathy of diabetes. CARDIAC: As above, noted history of aortic valve disease, coronary artery disease, hypertension, and hyperlipidemia. RESPIRATORY: Noted history of asthmatic disease. He attributes to environmental allergies. Does have sleep apnea. GI: Dyspepsia is managed with PPI therapy. No history of hepatitis, jaundice, or bowel changes. : Renal insufficiency of diabetes. Rises nightly to void. No urinary incontinence. MUSCULOSKELETAL: As above including osteoarthritis of the knees, calcific bursitis of the right hip, and hyperuricemia with gout. PHYSICAL EXAMINATION: GENERAL: Appearance is that of an elderly male, seated comfortably at the bedside, now in no acute distress. VITALS: Temperature 37.3 degrees centigrade, pulse 79 and regular, respiratory rate 16, blood pressure 106/53, and O2 sats 96% on room air. HEENT: Hearing is slightly diminished. Canals are normal. Extraocular eye movements are symmetrical and intact. No facial asymmetry. Speech is clear. NECK: Brisk, regular carotid pulses, radiating aortic murmur. No JVD or bruits. No thyromegaly. LUNGS: Symmetrical, clear, resonant, non-tachypneic. HEART: Regular. Without gallops. Grade 2 to 3 outflow murmur at the aortic region. In late mid systole, he has a prosthetic aortic valve closure. ABDOMEN: Obese, soft, and nontender. Active sounds. No CVA pain. EXTREMITIES: Chronic paresthesias and sensory loss in the feet. No current open ulcerative or callused lesions. Chronic edematous changes of feet. Pulses are intact. No varicosities. Tenderness over the trochanteric area of the right hip noted by the patient. LABORATORY DATA: On admission, WBC 9.1, hemoglobin 10.8, platelet count 134,000. Sodium 140, potassium 3.8, BUN 28, creatinine 2.4. GFR depressed at 26, glucose 122, calcium 8.3, AST 14, ALT 10, alkaline phosphatase 93. X-ray of the right hip and AP pelvis, calcific bursitic changes of the lateral right hip are evident on radiographic studies. Mild arthritic changes of the hips bilaterally. No acute fracture is evident. IMPRESSIONS: 1. Fall with resultant right hip pain secondary to instability with chronic calcific bursitis. 2. History of bilateral total knee arthroplasties secondary to osteoarthritis. 3. Coronary artery disease, status post single-vessel stenting. 4. History of aortic valve disease, status post aortic valve replacement, 2012. 5. Type 2 diabetes with accompanying peripheral neuropathy and renal insufficiency. 6. Hypertension. 7. Hyperlipidemia. 8. Mild hearing loss. 9. Gastroesophageal reflux disease with proton pump inhibitor therapy. 10.Hyperuricemia with gouty episodes. PLAN: With the patient's fall today and inability to rise and ambulate, he is admitted to observation bed for supportive cares. We will provide analgesics, ice pack and heat, PT assessment is requested, and allow ambulation with assistance and use of cane or walker. We requested Orthopedic Services involve themselves in care with Mr. Stern during his hospital stay. Intent is to optimize his management of right hip pain and allow return to his independent residential status in [place]. Full code status will be implemented. We will provide consistent carb, low-sodium diet with b.i.d. Gluco Checks and ongoing management of diabetes with pharmacologic therapies. Rubén Malloy MD /[id number]
[2021-07-04] MEDS ORDERED: DULAGLUTIDE 0.75 MG/0.5 ML SQ SCH (08:30)
== END 2021-06-30 18:52 | disposition home or self-care (01) ==
LOC: JP.ED 23:57 → JP.MS 06-30 02:53
PROVIDERS: ADMIT Family Medicine; ATTEND Family Medicine
DX: M25.551 Pain in right hip (principal); G89.29 Other chronic pain; I95.9 Hypotension, unspecified; E11.22 Type 2 diabetes mellitus with diabetic chronic kidney disease; N18.30 Chronic kidney disease, stage 3 unspecified; R29.6 Repeated falls; I12.9 Hypertensive chronic kidney disease with stage 1 through stage 4 chronic kidney disease, or unspecified chronic kidney disease; E78.5 Hyperlipidemia, unspecified; J44.9 Chronic obstructive pulmonary disease, unspecified; M19.90 Unspecified osteoarthritis, unspecified site; M25.351 Other instability, right hip; M70.71 Other bursitis of hip, right hip; I25.10 Atherosclerotic heart disease of native coronary artery without angina pectoris; M10.9 Gout, unspecified; E11.40 Type 2 diabetes mellitus with diabetic neuropathy, unspecified; Z88.8 Allergy status to other drugs, medicaments and biological substances; Z79.82 Long term (current) use of aspirin; Z79.84 Long term (current) use of oral hypoglycemic drugs; Z79.899 Other long term (current) drug therapy
CPT/HCPCS: 36415; 73502-26-RT; 73502-RT; 73721-RT; 80053; 81001; 82947; 85025; 97116-GP; 97161-GP; A9270-GY; J7030

== ENCOUNTER 2021-09-15 10:54 | Inpatient (IN) | payer MEDICARE, BC ==
--- NOTE | 2021-09-15 12:30 | EDM.PDOC ---
ED HPI GENERAL MEDICAL PROBLEM - General Chief Complaint: General Stated Complaint: MED VIA [facility] Time Seen by Provider: 09/15/21 11:35 Source of Information: Reports: Patient, Old Records, RN Notes Reviewed History Limitations: Reports: No Limitations - History of Present Illness INITIAL COMMENTS - FREE TEXT/NARRATIVE: 80-year-old gentleman presents emergency department day complaint of severe low back pain, he has a known history of severe spinal stenosis was on narcotics in the past has been hospitalized for this pain did undergo epidural injection back in July 2021 he states it gave him a couple days relief he has been doing fairly well but over the last couple days pain has gotten so severe that it has made it difficult for him to get out of bed. He normally sleeps in a lift chair. He states he has had incontinence for the last couple months mainly because if he is at rest he is in no pain but when he moves pain is severe sometimes he gets the urge to go to the bathroom the pain is so severe he cannot make it. He does have a consultation with I believe neurosurgery however we are trying to confirm this 2 weeks his primary care recently took him off narcotics as he did have irritability problems when he was on narcotics Bilateral Hip Pain Score (Numeric/FACES): 2 - Related Data Allergies Allergy/AdvReac Type Severity Reaction Status Date / Time colchicine Allergy Indigestion Verified 07/21/21 01:27 Home Meds: Home Meds Aspirin [Low Dose Aspirin EC] 81 mg PO DAILY 11/25/16 [History] Dulaglutide [Trulicity] 1.5 mg SQ WEEKLY 11/25/16 [History] Metoprolol Tartrate 50 mg PO BID 11/25/16 [History] [place]-3 Fatty Acids [Fish Oil] 1,000 mg PO DAILY 11/25/16 [History] Probenecid 500 mg PO BID 11/25/16 [History] Tamsulosin [Flomax] 0.4 mg PO DAILY 11/25/16 [History] Potassium Chloride 20 meq PO DAILY 11/29/16 [History] Acetaminophen [Acetaminophen Extra Strength] 1,000 mg PO BEDTIME 04/03/19 [History] Clopidogrel Bisulfate [Plavix] 75 mg PO DAILY 04/03/19 [History] Cranberry 500 mg PO DAILY 04/03/19 [History] Cyanocobalamin (Vitamin B12) [Vitamin B12] 2,000 mcg PO DAILY 04/03/19 [History] Nitroglycerin 0.4 mg SL ASDIRECTED 04/03/19 [History] atorvaSTATin [Lipitor] 80 mg PO DAILY 04/03/19 [History] Pantoprazole Sodium [Protonix] 40 mg PO DAILY 05/03/21 [History] polyethylene glycoL 3350 [MiraLAX] 17 gm PO DAILY PRN 05/03/21 [History] Furosemide 20 mg PO DAILY 06/30/21 [History] Naltrexone 25 mg PO BID 06/30/21 [History] buPROPion [Wellbutrin] 100 mg PO BID 06/30/21 [History] Docusate Sodium [Stool Softener] 500 mg PO BID 07/21/21 [History] Gabapentin [Neurontin] 300 mg PO BID #60 cap 07/29/21 [Rx] predniSONE 15 mg PO WITHBREAKFAST #90 tablet 07/29/21 [Rx] Furosemide 40 mg PO DAILY 09/15/21 [History] Magnesium Oxide [Magnesium] 400 mg PO DAILY 09/15/21 [History] Multivitamin [Multi-Vitamin Daily] 1 tab PO DAILY 09/15/21 [History] Past Medical History HEENT History: Reports: Allergic Rhinitis, Hard of Hearing, Impaired Vision Cardiovascular History: Reports: CAD, Heart Failure, Heart Valve Replacement, High Cholesterol, Hypertension, SD Respiratory History: Reports: Asthma, Sleep Apnea Gastrointestinal History: Reports: Colon Polyp, Gastritis, GERD Genitourinary History: Reports: Diabetic Nephropathy Musculoskeletal History: Reports: Gout, Osteoarthritis, Other (See Below) Other Musculoskeletal History: R hip pain Neurological History: Reports: Concussion, Other (See Below) Other Neuro History: bells palsy 8 years ago Endocrine/Metabolic History: Reports: Diabetes, Type II, IDDM, Obesity/BMI 30+ Hematologic History: Reports: Blood Transfusion(s) Oncologic (Cancer) History: Reports: Squamous Cell Carcinoma Dermatologic History: Reports: Eczema - Infectious Disease History Infectious Disease History: Reports: Chicken Pox, Measles - Past Surgical History Head Surgeries/Procedures: Reports: None HEENT Surgical History: Reports: Tonsillectomy Cardiovascular Surgical History: Reports: Coronary Artery Stent, Valve Replacement, Other (See Below) Other Cardiovascular Surgeries/Procedures: aorta valve replacement 2 years ago Respiratory Surgical History: Reports: None GI Surgical History: Reports: Colonoscopy Male Surgical History: Reports: None Neurological Surgical History: Reports: None Musculoskeletal Surgical History: Reports: Knee Replacement, Other (See Below) Other Musculoskeletal Surgeries/Procedures:: knee replacement x2 Oncologic Surgical History: Reports: Other (See Below) Other Oncologic Surgeries/Procedures: Scalp excision squamous cell cancer Social & Family History - Family History Family Medical History: No Pertinent Family History - Tobacco Use Tobacco Use Status *Q: Never Tobacco User - Caffeine Use Caffeine Use: Reports: None Caffeine Use Comment: non carbonated flavor water - Recreational Drug Use Recreational Drug Use: No ED ROS GENERAL - Review of Systems Review Of Systems: See Below Constitutional: Reports: No Symptoms HEENT: Reports: No Symptoms Respiratory: Reports: No Symptoms Cardiovascular: Reports: No Symptoms GI/Abdominal: Reports: Stool Incontinence : Reports: Incontinence Musculoskeletal: Reports: Back Pain ED EXAM, GENERAL - Physical Exam Exam: See Below Free Text/Narrative:: Power is 5 x 5 in the in the lower extremities with flexion extension of the ankle joint he can lift both legs off the ground does complain of little bit of pain but can tolerate it however when set up and getting ready to move he does complain of excruciating pain. Limiting the exam, Exam Limited By: No Limitations General Appearance: Alert, WD/WN, No Apparent Distress Respiratory/Chest: No Respiratory Distress, Lungs Clear, Normal Breath Sounds, No Accessory Muscle Use, Chest Non-Tender Cardiovascular: Regular Rate, Rhythm, No Murmur Course - Vital Signs Last Recorded V/S: Last Vital Signs Temp 97.7 F 09/15/21 10:57 Pulse 70 09/15/21 10:57 Resp 18 09/15/21 10:57 BP 110/41 L 09/15/21 10:57 Pulse Ox 100 09/15/21 10:57 - Orders/Labs/Meds Meds: Medications Discontinued Medications Generic Name Dose Route Start Last Admin Trade Name Freq PRN Reason Stop Dose Admin Hydromorphone HCl 1 mg 09/15/21 12:32 09/15/21 13:20 Hydromorphone 1 Mg/Ml Syringe IM 09/15/21 12:33 1 mg ONETIME ONE Administration Departure - Departure Time of Disposition: 14:29 Disposition: Home, Self-Care 01 Condition: Poor Clinical Impression: Spinal stenosis at L4-L5 level - Discharge Information Instructions: Spinal Stenosis Referrals: PCP,None [Primary Care Provider] - Forms: ED Department Discharge Additional Instructions: Use the Percocet as needed for pain control, try to limit this option as you will develop a tolerance to this medication, please have your family member set up a consultation with neurosurgery, please keep your primary care informed, call or return to the emergency department worsening of symptoms Sepsis Event Note (ED) - Evaluation Sepsis Screening Result: No Definite Risk - Focused Exam Vital Signs: Vital Signs Temp Pulse Resp BP Pulse Ox 09/15/21 10:57 97.7 F 70 18 110/41 L 100 - Assessment/Plan Plan: Assessment Acuity = acute Site and laterality = severe spinal stenosis L4 Etiology = unknown Manifestations = poor pain control Location of injury = Home Lab values = none Plan I discussed case with orthopedics on-call felt this is more issue with spinal stenosis than his right hip which does have a labrum tear also discussed case with his primary care said it would be okay to restart the narcotics but he does have behavioral issues on narcotics I discussed this at length with him they are in agreement that they will have to do the narcotics until he can get better evaluation of his spinal stenosis. He did have good relief with 1 mg Dilaudid in the emergency department. He would like to have his family member who works at [employer] set up with a consultation with neurosurgery prescription written for Percocet 5/325 1 tablet p.o. 3 times daily as needed total #30 This note was dictated using [employer] voice recognition software please call with any questions on syntax or grammar.
[2021-09-15] MEDS ORDERED: HYDROmorphone 1 MG/ML Syringe IM ONE ×2 (12:32→16:09)
[2021-09-15] MEDS ORDERED: Polyethylene Glycol 3350 Powder 17 GM Packet PO PRN (17:47)
[2021-09-15] MEDS ORDERED: Nitroglycerin 0.4 MG Tab.SL SL SCH (18:00)
[2021-09-15 20:54] LABS: CORONAVIRUS COVID-19 NAA NEGATIVE (NEGATIVE)
[2021-09-15] MEDS ORDERED: Acetaminophen 500 MG Tab PO SCH (21:00)
[2021-09-15] MEDS: Gabapentin 300 MG Cap PO SCH ×2 (21:07→21:11)
[2021-09-15] MEDS: Metoprolol Tartrate 50 MG Tab PO SCH ×2 (21:07→21:11)
[2021-09-15] MEDS: PROBENECID 500 MG PO SCH ×2 (21:09→21:11)
[2021-09-15] MEDS: Furosemide 20 MG Tab PO SCH (21:11)
[2021-09-15] MEDS: buPROPion 100 MG Tab PO SCH ×2 (21:12)
[2021-09-16] MEDS ORDERED: Non-Formulary Medication 1 Each (Omega-3 Fatty Acids [Fish Oil] 500 MG Capsule) PO SCH (09:00)
[2021-09-16] MEDS ORDERED: Potassium Chloride 10 MEQ Cap.ER PO SCH (09:00)
[2021-09-16] MEDS ORDERED: Non-Formulary Medication 1 Each (Magnesium Oxide [Magnesium] 400 MG Capsule) PO SCH (09:00)
[2021-09-16] MEDS ORDERED: Non-Formulary Medication 1 Each (Multivitamin [Multi-Vitamin Daily] 1 EACH Tablet) PO SCH (09:00)
[2021-09-16] MEDS ORDERED: Non-Formulary Medication 1 Each (Atorvastatin [Lipitor] 80 MG Tablet) PO SCH (09:00)
[2021-09-16] MEDS ORDERED: Pantoprazole 40 MG Tab.CR PO SCH (09:00)
[2021-09-16] MEDS ORDERED: Furosemide 20 MG Tab PO SCH (09:00)
[2021-09-16] MEDS ORDERED: Non-Formulary Medication 1 Each (Cranberry [Cranberry] 500 MG Cap) PO SCH (09:00)
[2021-09-16] MEDS ORDERED: Ketorolac 30 MG/ML SDV IM ONE (10:16)
[2021-09-16] MEDS: Metoprolol Tartrate 50 MG Tab PO SCH ×2 (10:31→22:39)
[2021-09-16] MEDS: Furosemide 20 MG Tab PO SCH (10:34)
[2021-09-16] MEDS: Tamsulosin 0.4 MG Cap.ER PO SCH (10:36)
[2021-09-16] MEDS: Aspirin 81 MG Tab.EC PO SCH (10:36)
[2021-09-16] MEDS: PROBENECID 500 MG PO SCH (10:38)
[2021-09-16] MEDS: predniSONE 5 MG Tab PO SCH (10:38)
[2021-09-16] MEDS: Cyanocobalamin (Vitamin B12) 1,000 MCG Tab PO SCH (10:39)
[2021-09-16] MEDS: buPROPion 100 MG Tab PO SCH ×2 (10:39→22:40)
[2021-09-16] MEDS: Clopidogrel 75 MG Tab PO SCH (10:40)
[2021-09-16] MEDS: Gabapentin 300 MG Cap PO SCH ×2 (10:46→22:39)
--- NOTE | 2021-09-16 17:56 | PCM.HP.2 ---
H&P History of Present Illness - General Date of Service: 09/16/21 Admit Problem/Dx: Admission Diagnosis/Problem Admission Diagnosis/Problem Spinal stenosis at L4-L5 level Source of Information: Patient, Provider History Limitations: Reports: No Limitations - History of Present Illness Initial Comments - Free Text/Narative: CC: I'm frustrated HPI: Jaziel presented to the ED yesterday morning with severe lower back and right buttocks pain. He has a known history of significant spinal stenosis at L3/L4, L4/L5 (most severe) and L5/S1. He had recently been in a prison for some rehab and was discharged about 2 weeks prior to presentation. He reports that he did well at home for a period of time and then suddenly developed acute and severe pain. He describes a sharp pain that radiates from the right lower back into the right buttocks. Pain does not extend further than that. He is comfortable when he is laying flat but anytime he tries to sit up or stand up he has severe pain. He has been using tramadol but this was ineffective. He does get relief only from laying flat. This is very similar to the pain that he had a couple of months ago that landed him in the prison. Otherwise he reports he is feeling okay. No recent fevers or chills. No shortness of breath. No abdominal pain. He has been a little constipated. He has lower extremity edema that is at baseline. He has been in the emergency room for more than 24hours. We have been searching for a prison bed but none was able to be located. He is having severe pain despite all of his outpatient medications and will be admitted for further work-up and management. Bilateral Hip Pain Score (Numeric/FACES): 8 - Related Data Allergies/Adverse Reactions: Allergies Allergy/AdvReac Type Severity Reaction Status Date / Time colchicine Allergy Indigestion Verified 07/21/21 01:27 Home Medications: Home Meds Aspirin [Low Dose Aspirin EC] 81 mg PO DAILY 11/25/16 [History] Dulaglutide [Trulicity] 1.5 mg SQ WEEKLY 11/25/16 [History] Metoprolol Tartrate 50 mg PO BID 11/25/16 [History] [place]-3 Fatty Acids [Fish Oil] 1,000 mg PO DAILY 11/25/16 [History] Probenecid 500 mg PO BID 11/25/16 [History] Tamsulosin [Flomax] 0.4 mg PO DAILY 11/25/16 [History] Potassium Chloride 20 meq PO DAILY 11/29/16 [History] Acetaminophen [Acetaminophen Extra Strength] 1,000 mg PO BEDTIME 04/03/19 [History] Clopidogrel Bisulfate [Plavix] 75 mg PO DAILY 04/03/19 [History] Cranberry 500 mg PO DAILY 04/03/19 [History] Cyanocobalamin (Vitamin B12) [Vitamin B12] 2,000 mcg PO DAILY 04/03/19 [History] Nitroglycerin 0.4 mg SL ASDIRECTED 04/03/19 [History] atorvaSTATin [Lipitor] 80 mg PO DAILY 04/03/19 [History] Pantoprazole Sodium [Protonix] 40 mg PO DAILY 05/03/21 [History] polyethylene glycoL 3350 [MiraLAX] 17 gm PO DAILY PRN 05/03/21 [History] Furosemide 20 mg PO DAILY 06/30/21 [History] Naltrexone 25 mg PO BID 06/30/21 [History] buPROPion [Wellbutrin] 100 mg PO BID 06/30/21 [History] Docusate Sodium [Stool Softener] 500 mg PO BID 07/21/21 [History] Gabapentin [Neurontin] 300 mg PO BID #60 cap 07/29/21 [Rx] predniSONE 15 mg PO WITHBREAKFAST #90 tablet 07/29/21 [Rx] Furosemide 40 mg PO DAILY 09/15/21 [History] Magnesium Oxide [Magnesium] 400 mg PO DAILY 09/15/21 [History] Multivitamin [Multi-Vitamin Daily] 1 tab PO DAILY 09/15/21 [History] Past Medical History HEENT History: Reports: Allergic Rhinitis, Hard of Hearing, Impaired Vision Cardiovascular History: Reports: CAD, Heart Failure, Heart Valve Replacement, High Cholesterol, Hypertension, CA Respiratory History: Reports: Asthma, Sleep Apnea Gastrointestinal History: Reports: Colon Polyp, Gastritis, GERD Genitourinary History: Reports: Diabetic Nephropathy Musculoskeletal History: Reports: Gout, Osteoarthritis, Other (See Below) Other Musculoskeletal History: R hip pain Neurological History: Reports: Concussion, Other (See Below) Other Neuro History: bells palsy 8 years ago Endocrine/Metabolic History: Reports: Diabetes, Type II, IDDM, Obesity/BMI 30+ Hematologic History: Reports: Blood Transfusion(s) Oncologic (Cancer) History: Reports: Squamous Cell Carcinoma Dermatologic History: Reports: Eczema - Infectious Disease History Infectious Disease History: Reports: Chicken Pox, Measles - Past Surgical History Head Surgeries/Procedures: Reports: None HEENT Surgical History: Reports: Tonsillectomy Cardiovascular Surgical History: Reports: Coronary Artery Stent, Valve Replacement, Other (See Below) Other Cardiovascular Surgeries/Procedures: aorta valve replacement 2 years ago Respiratory Surgical History: Reports: None GI Surgical History: Reports: Colonoscopy Male Surgical History: Reports: None Neurological Surgical History: Reports: None, Other (See Below) Other Neurological Surgeries/Procedures: PMR Musculoskeletal Surgical History: Reports: Knee Replacement, Other (See Below) Other Musculoskeletal Surgeries/Procedures:: knee replacement x2 Oncologic Surgical History: Reports: Other (See Below) Other Oncologic Surgeries/Procedures: Scalp excision squamous cell cancer Social & Family History - Family History Family Medical History: No Pertinent Family History - Tobacco Use Tobacco Use Status *Q: Never Tobacco User - Caffeine Use Caffeine Use: Reports: None Caffeine Use Comment: non carbonated flavor water - Alcohol Use Alcohol Use History: No Alcohol Use in Last Twelve Months: No - Recreational Drug Use Recreational Drug Use: No H&P Review of Systems - Review of Systems: Review Of Systems: See Below Free Text/Narrative: A complete 12 point review of systems was obtained. Pertinent positives and negatives are noted in the history of present illness. All other systems were reviewed and were negative except as noted. Exam - Exam Exam: See Below - Vital Signs Vital Signs: Last Vital Signs Temp 36.9 C 09/16/21 12:55 Pulse 64 09/16/21 12:55 Resp 14 09/16/21 12:55 BP 104/46 L 09/16/21 12:55 Pulse Ox 96 09/16/21 12:55 Weight: 113.398 kg - Exam Quality Assessment: No: Supplemental Oxygen General: Alert, Oriented, Cooperative. No: Mild Distress HEENT: Conjunctiva Clear, Mucosa Moist & [place] (dry). No: Scleral Icterus Neck: Supple, Trachea Midline. No: Lymphadenopathy Lungs: Clear to Auscultation, Normal Respiratory Effort Cardiovascular: Regular Rate, Regular Rhythm, Systolic Murmur. No: Gallop/S3 GI/Abdominal Exam: Normal Bowel Sounds, Soft, Non-Tender, No Distention Extremities: Pedal Edema. No: Increased Warmth Skin: Warm, Dry, Rash (venous stasis both lower legs from ankles to mid wang), Other (excoriations both lower legs on anterior shins) Neuro Extensive - Mental Status: Alert, Oriented x3, Nl Response to Commands Neuro Extensive - Motor, Sensory, Reflexes: No: Dysarthria, Abnormal Motor, Tremor Psychiatric: Alert, Normal Affect - Patient Data Lab Results Last 24 hrs: Laboratory Results - last 24 hr 09/15/21 09/15/21 09/15/21 Range/Units 17:46 17:46 17:46 WBC 10.3 (4.5-11.0) K/uL RBC 3.76 L (4.30-5.90) M/uL Hgb 11.2 L (12.0-15.0) g/dL Hct 34.8 L (40.0-54.0) % MCV 93 (80-98) fL MCH 30 (27-31) pg MCHC 32 (32-36) % Plt Count 158 (150-400) K/uL Neut % (Auto) 85.7 H (36-66) % Lymph % (Auto) 7.7 L (24-44) % [place] % (Auto) 5.8 (2-6) % Eos % (Auto) 0.6 L (2-4) % Baso % (Auto) 0.2 (0-1) % Sodium 137 L (140-148) mmol/L Potassium 3.7 (3.6-5.2) mmol/L Chloride 99 L (100-108) mmol/L Carbon Dioxide 28 (21-32) mmol/L Anion Gap 13.7 (5.0-14.0) mmol/L BUN 28 H (7-18) mg/dL Creatinine 1.8 H (0.8-1.3) mg/dL Est Cr Clr Drug Dosing 34.86 mL/min Estimated GFR (MDRD) 36 L (>60) Glucose 78 (74-106) mg/dL Lactic Acid 1.3 (0.4-2.0) mmol/L Calcium 8.9 (8.5-10.1) mg/dL Total Bilirubin 0.6 (0.2-1.0) mg/dL AST 15 (15-37) U/L ALT 16 (12-78) U/L Alkaline Phosphatase 94 (46-116) U/L NT-Pro-B Natriuret Pep 4781 H (5-450) pg/mL Total Protein 6.5 (6.4-8.2) g/dL Albumin 2.5 L (3.4-5.0) g/dL Globulin 4.0 H (2.3-3.5) g/dL Albumin/Globulin Ratio 0.6 L (1.2-2.2) Urine Color (YELLOW) Urine Appearance (CLEAR) Urine pH (5.0-8.0) Ur Specific Vici (1.008-1.030) Urine Protein (NEGATIVE) mg/dL Urine Glucose (UA) (NEGATIVE) mg/dL Urine Ketones (NEGATIVE) mg/dL Urine Occult Blood (NEGATIVE) Urine Nitrite (NEGATIVE) Urine Bilirubin (NEGATIVE) Urine Urobilinogen (0.2-1.0) EU/dL Ur Leukocyte Esterase (NEGATIVE) Urine RBC (0-5) Urine WBC (0-5) Ur Epithelial Cells Amorphous Sediment Urine Bacteria Urine Mucus Influenza Type A RNA (NEGATIVE) RSV RNA (INAAT) (NEGATIVE) Influenza Type B RNA (NEGATIVE) SARS-CoV-2 RNA (PATRICK) (NEGATIVE) 09/15/21 09/15/21 Range/Units 20:25 23:50 WBC (4.5-11.0) K/uL RBC (4.30-5.90) M/uL Hgb (12.0-15.0) g/dL Hct (40.0-54.0) % MCV (80-98) fL MCH (27-31) pg MCHC (32-36) % Plt Count (150-400) K/uL Neut % (Auto) (36-66) % Lymph % (Auto) (24-44) % [place] % (Auto) (2-6) % Eos % (Auto) (2-4) % Baso % (Auto) (0-1) % Sodium (140-148) mmol/L Potassium (3.6-5.2) mmol/L Chloride (100-108) mmol/L Carbon Dioxide (21-32) mmol/L Anion Gap (5.0-14.0) mmol/L BUN (7-18) mg/dL Creatinine (0.8-1.3) mg/dL Est Cr Clr Drug Dosing mL/min Estimated GFR (MDRD) (>60) Glucose (74-106) mg/dL Lactic Acid (0.4-2.0) mmol/L Calcium (8.5-10.1) mg/dL Total Bilirubin (0.2-1.0) mg/dL AST (15-37) U/L ALT (12-78) U/L Alkaline Phosphatase (46-116) U/L NT-Pro-B Natriuret Pep (5-450) pg/mL Total Protein (6.4-8.2) g/dL Albumin (3.4-5.0) g/dL Globulin (2.3-3.5) g/dL Albumin/Globulin Ratio (1.2-2.2) Urine Color Yellow (YELLOW) Urine Appearance Slightly cloudy A (CLEAR) Urine pH 5.5 (5.0-8.0) Ur Specific Vici >= 1.030 (1.008-1.030) Urine Protein Negative (NEGATIVE) mg/dL Urine Glucose (UA) Negative (NEGATIVE) mg/dL Urine Ketones 15 H (NEGATIVE) mg/dL Urine Occult Blood Negative (NEGATIVE) Urine Nitrite Negative (NEGATIVE) Urine Bilirubin Small H (NEGATIVE) Urine Urobilinogen 0.2 (0.2-1.0) EU/dL Ur Leukocyte Esterase Negative (NEGATIVE) Urine RBC 0-5 (0-5) Urine WBC 0-5 (0-5) Ur Epithelial Cells Rare Amorphous Sediment Not seen Urine Bacteria Rare Urine Mucus Many Influenza Type A RNA Negative (NEGATIVE) RSV RNA (INAAT) Negative (NEGATIVE) Influenza Type B RNA Negative (NEGATIVE) SARS-CoV-2 RNA (PATRICK) Negative (NEGATIVE) Result Diagrams: 09/15/21 17:46 09/15/21 17:46 Sepsis Event Note - Evaluation Sepsis Screening Result: No Definite Risk - Focused Exam Vital Signs: Vital Signs Temp Pulse Pulse Resp BP BP Pulse Ox 09/16/21 12:55 36.9 C 64 14 104/46 L 96 09/16/21 10:31 72 113/43 L 09/16/21 09:00 36.3 C 74 14 113/43 L 97 *Q Meaningful Use (ADM) - VTE Risk Assess *Q Each Risk Factor Represents 1 Point: Swollen Legs, Current, Obesity ( BMI > 25 kg/m2) Total Score 1 Point Risk Factors: 2 Each Risk Factor Represents 2 Points: None Total Score 2 Point Risk Factors: 0 Each Risk Factor Represents 3 Points: Age 75 Years or Greater Total Score 3 Point Risk Factors: 3 Each Risk Factor Represents 5 Points: None Total Score 5 Point Risk Factors: 0 Venous Thromboembolism Risk Factor Score *Q: 5 - Problem List (1) Spinal stenosis at L4-L5 level SNOMED Code(s): 60174242 ICD Code: M48.061 - SPINAL STENOSIS, LUMBAR REGION WITHOUT NEUROGENIC LISHA Status: Acute Current Visit: Yes (2) Weakness SNOMED Code(s): 96482405 ICD Code: R53.1 - WEAKNESS Status: Acute Current Visit: No (3) CAD (coronary artery disease), [place] coronary artery SNOMED Code(s): 842913336 ICD Code: I25.10 - ATHSCL HEART DISEASE OF [place] CORONARY ARTERY W/O ANG PCTRS Status: Chronic Current Visit: No Qualifiers: [place] vs. transplanted heart: [place] heart Associated angina: without angina Qualified Code(s): I25.10 - Atherosclerotic heart disease of [place] coronary artery without angina pectoris (4) CKD (chronic kidney disease), stage III SNOMED Code(s): 403264353 ICD Code: N18.30 - CHRONIC KIDNEY DISEASE, STAGE 3 UNSPECIFIED Status: Chronic Current Visit: No Qualifiers: Chronic kidney disease stage 3 subtype: stage 3b (GFR 30-44) Qualified Code(s): N18.32 - Chronic kidney disease, stage 3b (5) MARGRET on CPAP SNOMED Code(s): 12447587 ICD Code: G47.33 - OBSTRUCTIVE SLEEP APNEA (ADULT) (PEDIATRIC); Z99.89 - DEPENDENCE ON OTHER ENABLING MACHINES AND DEVICES Status: Chronic Current Visit: No (6) Type 2 diabetes mellitus SNOMED Code(s): 49230266 ICD Code: E11.9 - TYPE 2 DIABETES MELLITUS WITHOUT COMPLICATIONS Status: Chronic Current Visit: No Qualifiers: Diabetes mellitus termite helper insulin use: without termite helper use Diabetes mellitus complication status: without complication Qualified Code(s): E11.9 - Type 2 diabetes mellitus without complications (7) (HFpEF) heart failure with preserved ejection fraction SNOMED Code(s): 460513275 ICD Code: I50.30 - UNSPECIFIED DIASTOLIC (CONGESTIVE) HEART FAILURE Status: Chronic Current Visit: Yes Qualifiers: Heart failure chronicity: chronic Qualified Code(s): I50.32 - Chronic diastolic (congestive) heart failure Problem List Initiated/Reviewed/Updated: Yes Orders Last 24hrs: Active Orders 24 hr Category Date Time Status Patient Status Manage Transfer [TRANSFER] Routine ADT 09/16/21 17:43 Ordered Patient Status [ADT] Routine ADT 09/15/21 17:45 Active Up With Assistance [RC] ASDIRECTED Care 09/15/21 17:45 Active Vital Signs [RC] Q4H Care 09/15/21 17:45 Active Consult to Occupational Therapy [OT Evaluation and Cons 09/15/21 17:33 Active Treatment] [CONS] Routine PT Evaluation and Treatment [CONS] Routine Cons 09/15/21 17:33 Active Acetaminophen [Tylenol Extra Strength] Med 09/15/21 21:00 Active 1,000 mg PO BEDTIME Aspirin [Halfprin] Med 09/16/21 09:00 Active 81 mg PO DAILY Clopidogrel [Plavix] Med 09/16/21 09:00 Active 75 mg PO DAILY Cranberry [Cranberry] Med 09/16/21 09:00 Active 500 mg PO DAILY Cyanocobalamin (Vitamin B12) [Vitamin B12] Med 09/16/21 09:00 Active 2,000 mcg PO DAILY Docusate Sodium [Stool Softener] Med 09/15/21 21:00 Active 500 mg PO BID Dulaglutide [Trulicity] Med 09/19/21 09:00 Active 1.5 mg SUBCUT Fernandez@0900 Furosemide [Lasix] Med 09/16/21 09:00 Active 20 mg PO DAILY Furosemide [Lasix] Med 09/15/21 18:00 Active 40 mg PO DAILY Gabapentin [Neurontin] Med 09/15/21 18:00 Active 300 mg PO BID Magnesium Oxide [Magnesium] Med 09/16/21 09:00 Active 400 mg PO DAILY Metoprolol Tartrate [Lopressor] Med 09/15/21 18:00 Active 50 mg PO BID Multivitamin [Multi-Vitamin Daily] Med 09/16/21 09:00 Active 1 tab PO DAILY Nitroglycerin [Nitrostat] Med 09/15/21 18:00 Active 0.4 mg SL ASDIRECTED [place]-3 Fatty Acids [Fish Oil] Med 09/16/21 09:00 Active 1,000 mg PO DAILY Pantoprazole [ProTONIX] Med 09/16/21 09:00 Active 40 mg PO DAILY Potassium Chloride Med 09/16/21 09:00 Active 20 meq PO DAILY Probenecid [Probenecid] Med 09/15/21 18:00 Active 500 mg PO BID Tamsulosin [Flomax] Med 09/16/21 09:00 Active 0.4 mg PO DAILY atorvaSTATin [Lipitor] Med 09/16/21 09:00 Active 80 mg PO DAILY buPROPion [Wellbutrin] Med 09/15/21 18:00 Active 100 mg PO BID polyethylene glycoL 3350 [MiraLAX] Med 09/15/21 17:47 Active 17 gm PO DAILY PRN predniSONE Med 09/16/21 08:00 Active 15 mg PO WITHBREAKFAST Isolation [COMM] Stat Oth 09/15/21 17:47 Ordered Resuscitation Status Routine Resus Stat 09/16/21 17:46 Ordered Medication Orders Acetaminophen (Acetaminophen 500 Mg Tab) 1,000 mg PO BEDTIME [facility] Last Admin: 09/15/21 21:06 Dose: 1,000 mg Documented by: SPENCER Aspirin (Aspirin 81 Mg Tab.Ec) 81 mg PO DAILY [facility] Last Admin: 09/16/21 10:36 Dose: 81 mg Documented by: SWAPNA Bupropion HCl (Bupropion 100 Mg Tab) 100 mg PO BID [facility] Last Admin: 09/16/21 10:39 Dose: 100 mg Documented by: Admin: 09/15/21 21:12 Dose: 100 mg Documented by: Admin: 09/15/21 21:12 Dose: Not Given Documented by: SPENCER Clopidogrel Bisulfate (Clopidogrel 75 Mg Tab) 75 mg PO DAILY [facility] Last Admin: 09/16/21 10:40 Dose: 75 mg Documented by: SWAPNA Cyanocobalamin (Cyanocobalamin (Vitamin B12) 1,000 Mcg Tab) 2,000 mcg PO DAILY [facility] Last Admin: 09/16/21 10:39 Dose: 2,000 mcg Documented by: SWAPNA Furosemide (Furosemide 20 Mg Tab) 20 mg PO DAILY [facility] Last Admin: 09/16/21 10:34 Dose: Not Given Documented by: SWAPNA Furosemide (Furosemide 20 Mg Tab) 40 mg PO DAILY [facility] Last Admin: 09/16/21 10:34 Dose: 40 mg Documented by: Admin: 09/15/21 21:11 Dose: Not Given Documented by: SPENCER Gabapentin (Gabapentin 300 Mg Cap) 300 mg PO BID [facility] Last Admin: 09/16/21 10:46 Dose: 300 mg Documented by: Admin: 09/15/21 21:11 Dose: Not Given Documented by: Admin: 09/15/21 21:07 Dose: 300 mg Documented by: SPENCER Metoprolol Tartrate (Metoprolol Tartrate 50 Mg Tab) 50 mg PO BID [facility] Last Admin: 09/16/21 10:31 Dose: 50 mg Documented by: Admin: 09/15/21 21:11 Dose: Not Given Documented by: Admin: 09/15/21 21:07 Dose: 50 mg Documented by: SPENCER Nitroglycerin (Nitroglycerin 0.4 Mg Tab.Sl) 0.4 mg SL ASDIRECTED [facility] Non-Formulary Medication (Atorvastatin [Lipitor]) 80 mg PO DAILY [facility] Last Admin: 09/16/21 10:33 Dose: 80 mg Documented by: SWAPNA Non-Formulary Medication (Cranberry [Cranberry]) 500 mg PO DAILY [facility] Last Admin: 09/16/21 10:36 Dose: 500 mg Documented by: SWAPNA Non-Formulary Medication (Docusate Sodium [Stool Softener]) 500 mg PO BID [facility] Last Admin: 09/16/21 10:42 Dose: Not Given Documented by: Admin: 09/15/21 21:11 Dose: Not Given Documented by: SPENCER Non-Formulary Medication (Magnesium Oxide [Magnesium]) 400 mg PO DAILY [facility] Last Admin: 09/16/21 10:40 Dose: 400 mg Documented by: SWAPNA Non-Formulary Medication (Multivitamin [Multi-Vitamin Daily]) 1 tab PO DAILY [facility] Last Admin: 09/16/21 10:37 Dose: 1 tab Documented by: SWAPNA Non-Formulary Medication ([place]-3 Fatty Acids [Fish Oil]) 1,000 mg PO DAILY [facility] Last Admin: 09/16/21 10:37 Dose: 1,000 mg Documented by: SWAPNA Non-Formulary Medication (Probenecid [Probenecid]) 500 mg PO BID [facility] Last Admin: 09/16/21 10:38 Dose: 500 mg Documented by: Admin: 09/15/21 21:11 Dose: Not Given Documented by: Admin: 09/15/21 21:09 Dose: 500 mg Documented by: SPENCER Pantoprazole Sodium (Pantoprazole 40 Mg Tab.Cr) 40 mg PO DAILY [facility] Last Admin: 09/16/21 10:42 Dose: 40 mg Documented by: SWAPNA Polyethylene Glycol (Polyethylene Glycol 3350 Powder 17 Gm Packet) 17 gm PO DAILY PRN PRN Reason: Constipation Potassium Chloride (Potassium Chloride 10 Meq Cap.Er) 20 meq PO DAILY [facility] Last Admin: 09/16/21 10:38 Dose: 20 meq Documented by: SWAPNA Prednisone (Prednisone 5 Mg Tab) 15 mg PO WITHBREAKFAST [facility] Last Admin: 09/16/21 10:38 Dose: 15 mg Documented by: SWAPNA Tamsulosin HCl (Tamsulosin 0.4 Mg Cap.Er) 0.4 mg PO DAILY [facility] Last Admin: 09/16/21 10:36 Dose: 0.4 mg Documented by: SWAPNA Assessment/Plan Comment:: ASSESSMENT AND PLAN - Severe spinal stenosis at multiple levels-significant pain resulting in extreme difficulty with any sort of mobility. Comfortable only when laying on his back. Multiple medications have been tried and unfortunately most of them have resulted in delirium or difficulty. He had been doing well after some rehab but has declined again recently. No preceding injury. No red flags such as incontinence. He has previously been intolerant to muscle relaxers. Previous epidural steroid injection provided minimal and only very short-lived relief. -Scheduled acetaminophen -As needed hydromorphone -Physical and Occupational Therapy Heart failure with preserved ejection fraction-some lower extremity edema but overall appears to be fairly well compensated. -Continue diuretics and medical management -Consider Royer wraps tomorrow morning Coronary artery disease-no active symptoms. -Medical management Obstructive sleep apnea-uses CPAP at home. -Obtain home CPAP if possible Type 2 diabetes mellitus-controlled at home. -Continue home medications Maintenance issues - -DVT prophylaxis-mechanical -GI prophylaxis-PPI -Nutrition-regular -Donis catheter-not indicated CODE STATUS -full code Admission justification -this patient will be admitted for inpatient services and is medically appropriate meeting medical necessity for inpatient admission as outlined in my documentation. I reasonably expect the patient will require inpatient services that span a period time over 2 midnights. I reasonably expect this patient to be discharged or transferred within 96 hours [facility]. Disposition -I anticipate discharge home after the hospital stay Cuong Pitts M.D. - Mortality Measure Prognosis:: Poor
[2021-09-16] MEDS ORDERED: LORazepam 2 MG/ML SDV IVPUSH PRN (18:19)
[2021-09-16] MEDS ORDERED: Magnesium Hydroxide 400 MG/5 ML Susp 30 ML Cup PO PRN (18:19)
[2021-09-16] MEDS ORDERED: Ondansetron 4 MG Tab.DIS PO PRN (18:19)
[2021-09-16] MEDS ORDERED: Ondansetron 4 MG/2 ML SDV IV PRN (18:19)
[2021-09-16] MEDS ORDERED: Nystatin Topical Powder 15 GM Bottle TOP SCH (21:45)
[2021-09-16] MEDS: Melatonin 3 MG Tab PO SCH (22:40)
[2021-09-16] MEDS: Acetaminophen 500 MG Tab PO SCH (22:40)
[2021-09-17] MEDS: predniSONE 5 MG Tab PO SCH (08:40)
[2021-09-17] MEDS: Tamsulosin 0.4 MG Cap.ER PO SCH (08:40)
[2021-09-17] MEDS: Aspirin 81 MG Tab.EC PO SCH (08:41)
[2021-09-17] MEDS: atorvaSTATin 20 MG Tab PO SCH (08:41)
[2021-09-17] MEDS: Potassium Chloride 20 MEQ Tab.ER PO SCH (08:41)
[2021-09-17] MEDS: Magnesium Oxide 400 MG Tab PO SCH (08:42)
[2021-09-17] MEDS: Clopidogrel 75 MG Tab PO SCH (08:42)
[2021-09-17] MEDS: Nystatin Topical Powder 15 GM Bottle TOP SCH ×2 (08:43→20:37)
[2021-09-17] MEDS: buPROPion 100 MG Tab PO SCH ×2 (08:43→20:39)
[2021-09-17] MEDS: Multivitamins with Iron/Calcium/Folic Acid/Minerals Tab PO SCH (08:43)
[2021-09-17] MEDS: Cyanocobalamin (Vitamin B12) 1,000 MCG Tab PO SCH (08:43)
[2021-09-17] MEDS: Acetaminophen 500 MG Tab PO SCH ×3 (08:43→20:38)
[2021-09-17] MEDS: Gabapentin 300 MG Cap PO SCH ×2 (08:48→20:38)
[2021-09-17] MEDS: Furosemide 40 MG Tab PO SCH ×2 (09:02→14:50)
[2021-09-17] MEDS: Metoprolol Tartrate 50 MG Tab PO SCH ×2 (09:30→20:39)
[2021-09-17] MEDS: HYDROmorphone 2 MG Tab PO PRN (11:19)
--- NOTE | 2021-09-17 11:33 | PCM.PN ---
- General Info Date of Service: 09/17/21 Subjective Update: No acute events overnight. Patient reports 2 out of 10 pain at rest. Pain is in the right hip and buttocks area. He has not been up and moving yet. He anticipates severe pain with any sort of movement. Otherwise feels well. Tolerating pain medication so far. No shortness of breath. No hallucinations. - Review of Systems Musculoskeletal: Reports: Back Pain - Patient Data Vitals - Most Recent: Last Vital Signs Temp 36.5 C 09/17/21 11:23 Pulse 77 09/17/21 11:23 Resp 18 09/17/21 11:23 BP 102/32 L 09/17/21 11:23 Pulse Ox 92 L 09/17/21 11:23 Weight - Most Recent: 117.027 kg I&O - Last 24 Hours: Intake & Output 09/16/21 09/17/21 09/17/21 22:59 06:59 14:59 Intake Total 260 Output Total 350 300 Balance -350 -300 260 Lab Results Last 24 Hours: Laboratory Results - last 24 hr 09/17/21 09/17/21 09/17/21 Range/Units 04:42 04:42 04:42 WBC 8.1 (4.5-11.0) K/uL RBC 3.30 L (4.30-5.90) M/uL Hgb 9.7 L (12.0-15.0) g/dL Hct 30.6 L (40.0-54.0) % MCV 93 (80-98) fL MCH 29 (27-31) pg MCHC 32 (32-36) % Plt Count 133 L (150-400) K/uL ESR 50 H (0-20) mm/hr Sodium 139 L (140-148) mmol/L Potassium 4.2 (3.6-5.2) mmol/L Chloride 102 (100-108) mmol/L Carbon Dioxide 27 (21-32) mmol/L Anion Gap 14.2 H (5.0-14.0) mmol/L BUN 33 H (7-18) mg/dL Creatinine 1.9 H (0.8-1.3) mg/dL Est Cr Clr Drug Dosing 33.03 mL/min Estimated GFR (MDRD) 34 L (>60) Glucose 71 L (74-106) mg/dL Calcium 8.6 (8.5-10.1) mg/dL Med Orders - Current: Current Medications Acetaminophen (Acetaminophen 500 Mg Tab) 1,000 mg PO TID [facility] Last Admin: 09/17/21 08:43 Dose: 1,000 mg Documented by: Aspirin (Aspirin 81 Mg Tab.Ec) 81 mg PO DAILY [facility] Last Admin: 09/17/21 08:41 Dose: 81 mg Documented by: Atorvastatin Calcium (Atorvastatin 20 Mg Tab) 80 mg PO DAILY [facility] Last Admin: 09/17/21 08:41 Dose: 80 mg Documented by: Bupropion HCl (Bupropion 100 Mg Tab) 100 mg PO BID [facility] Last Admin: 09/17/21 08:43 Dose: 100 mg Documented by: Clopidogrel Bisulfate (Clopidogrel 75 Mg Tab) 75 mg PO DAILY [facility] Last Admin: 09/17/21 08:42 Dose: 75 mg Documented by: Cyanocobalamin (Cyanocobalamin (Vitamin B12) 1,000 Mcg Tab) 2,000 mcg PO DAILY [facility] Last Admin: 09/17/21 08:43 Dose: 2,000 mcg Documented by: Furosemide (Furosemide 40 Mg Tab) 40 mg PO BIDDIURETIC [facility] Last Admin: 09/17/21 09:02 Dose: Not Given Documented by: Gabapentin (Gabapentin 300 Mg Cap) 300 mg PO BID [facility] Last Admin: 09/17/21 08:48 Dose: 300 mg Documented by: Hydromorphone HCl (Hydromorphone 2 Mg Tab) 2 mg PO Q4H PRN PRN Reason: Pain Last Admin: 09/17/21 11:19 Dose: 2 mg Documented by: Lorazepam (Lorazepam 2 Mg/Ml Sdv) 0.5 mg IVPUSH Q4H PRN PRN Reason: Nausea/Vomiting Magnesium Hydroxide (Magnesium Hydroxide 400 Mg/5 Ml Susp 30 Ml Cup) 30 ml PO Q12H PRN PRN Reason: Constipation Magnesium Oxide (Magnesium Oxide 400 Mg Tab) 400 mg PO DAILY [facility] Last Admin: 09/17/21 08:42 Dose: 400 mg Documented by: Melatonin (Melatonin 3 Mg Tab) 9 mg PO BEDTIME [facility] Last Admin: 09/16/21 22:40 Dose: 9 mg Documented by: Metoprolol Tartrate (Metoprolol Tartrate 50 Mg Tab) 50 mg PO BID [facility] Last Admin: 09/17/21 09:30 Dose: 50 mg Documented by: Multivitamins/Minerals (Multivitamins With Iron/Calcium/Folic Acid/Minerals Tab) 1 tab PO DAILY [facility] Last Admin: 09/17/21 08:43 Dose: 1 tab Documented by: Nitroglycerin (Nitroglycerin 0.4 Mg Tab.Sl) 0.4 mg SL ASDIRECTED [facility] Non-Formulary Medication (Cranberry [Cranberry]) 500 mg PO DAILY [facility] Last Admin: 09/16/21 10:36 Dose: 500 mg Documented by: Nystatin (Nystatin Topical Powder 15 Gm Bottle) 0 gm TOP BID [facility] Last Admin: 09/17/21 08:43 Dose: 1 applic Documented by: Ondansetron HCl (Ondansetron 4 Mg/2 Ml Sdv) 4 mg IV Q6H PRN PRN Reason: Nausea/Vomiting Ondansetron HCl (Ondansetron 4 Mg Tab.Dis) 4 mg PO Q6H PRN PRN Reason: Nausea able to take PO Polyethylene Glycol (Polyethylene Glycol 3350 Powder 17 Gm Packet) 17 gm PO DAILY PRN PRN Reason: Constipation Potassium Chloride (Potassium Chloride 20 Meq Tab.Er) 20 meq PO DAILY [facility] Last Admin: 09/17/21 08:41 Dose: 20 meq Documented by: Prednisone (Prednisone 5 Mg Tab) 15 mg PO WITHBREAKFAST [facility] Last Admin: 09/17/21 08:40 Dose: 15 mg Documented by: Senna/Docusate Sodium (Docusate Sodium/Sennosides 50-8.6 Mg Tab) 1 tab PO BID [facility] Last Admin: 09/17/21 08:42 Dose: 1 tab Documented by: Tamsulosin HCl (Tamsulosin 0.4 Mg Cap.Er) 0.4 mg PO DAILY [facility] Last Admin: 09/17/21 08:40 Dose: 0.4 mg Documented by: Discontinued Medications Acetaminophen (Acetaminophen 500 Mg Tab) 1,000 mg PO BEDTIME [facility] Last Admin: 09/15/21 21:06 Dose: 1,000 mg Documented by: Furosemide (Furosemide 20 Mg Tab) 20 mg PO DAILY [facility] Last Admin: 09/16/21 10:34 Dose: Not Given Documented by: Furosemide (Furosemide 20 Mg Tab) 40 mg PO DAILY [facility] Last Admin: 09/16/21 10:34 Dose: 40 mg Documented by: Hydromorphone HCl (Hydromorphone 1 Mg/Ml Syringe) 1 mg IM ONETIME ONE Stop: 09/15/21 12:33 Last Admin: 09/15/21 13:20 Dose: 1 mg Documented by: Hydromorphone HCl (Hydromorphone 1 Mg/Ml Syringe) 1 mg IM ONETIME ONE Stop: 09/15/21 16:10 Last Admin: 09/15/21 16:39 Dose: 1 mg Documented by: Ketorolac Tromethamine (Ketorolac 30 Mg/Ml Sdv) 30 mg IM ONETIME ONE Stop: 09/16/21 10:17 Last Admin: 09/16/21 10:46 Dose: 30 mg Documented by: Non-Formulary Medication (Atorvastatin [Lipitor]) 80 mg PO DAILY [facility] Last Admin: 09/16/21 10:33 Dose: 80 mg Documented by: Non-Formulary Medication (Docusate Sodium [Stool Softener]) 500 mg PO BID [facility] Last Admin: 09/16/21 10:42 Dose: Not Given Documented by: Non-Formulary Medication (Magnesium Oxide [Magnesium]) 400 mg PO DAILY [facility] Last Admin: 09/16/21 10:40 Dose: 400 mg Documented by: Non-Formulary Medication (Multivitamin [Multi-Vitamin Daily]) 1 tab PO DAILY [facility] Last Admin: 09/16/21 10:37 Dose: 1 tab Documented by: Non-Formulary Medication ([place]-3 Fatty Acids [Fish Oil]) 1,000 mg PO DAILY [facility] Last Admin: 09/16/21 10:37 Dose: 1,000 mg Documented by: Non-Formulary Medication (Probenecid [Probenecid]) 500 mg PO BID [facility] Last Admin: 09/16/21 10:38 Dose: 500 mg Documented by: Nystatin (Nystatin Topical Powder 15 Gm Bottle) 0 gm TOP BID [facility] Last Admin: 09/16/21 22:40 Dose: 1 applic Documented by: Pantoprazole Sodium (Pantoprazole 40 Mg Tab.Cr) 40 mg PO DAILY [facility] Last Admin: 09/16/21 10:42 Dose: 40 mg Documented by: Potassium Chloride (Potassium Chloride 10 Meq Cap.Er) 20 meq PO DAILY [facility] Last Admin: 09/16/21 10:38 Dose: 20 meq Documented by: - Exam Quality Assessment: No: Supplemental Oxygen General: Alert, Oriented, Cooperative, No Acute Distress Lungs: Normal Respiratory Effort GI/Abdominal Exam: No Distention Extremities: Pedal Edema Psy/Mental Status: Alert, Normal Affect - Patient Data Lab Results Last 24 hrs: Laboratory Results - last 24 hr 09/17/21 09/17/21 09/17/21 Range/Units 04:42 04:42 04:42 WBC 8.1 (4.5-11.0) K/uL RBC 3.30 L (4.30-5.90) M/uL Hgb 9.7 L (12.0-15.0) g/dL Hct 30.6 L (40.0-54.0) % MCV 93 (80-98) fL MCH 29 (27-31) pg MCHC 32 (32-36) % Plt Count 133 L (150-400) K/uL ESR 50 H (0-20) mm/hr Sodium 139 L (140-148) mmol/L Potassium 4.2 (3.6-5.2) mmol/L Chloride 102 (100-108) mmol/L Carbon Dioxide 27 (21-32) mmol/L Anion Gap 14.2 H (5.0-14.0) mmol/L BUN 33 H (7-18) mg/dL Creatinine 1.9 H (0.8-1.3) mg/dL Est Cr Clr Drug Dosing 33.03 mL/min Estimated GFR (MDRD) 34 L (>60) Glucose 71 L (74-106) mg/dL Calcium 8.6 (8.5-10.1) mg/dL Result Diagrams: 09/17/21 04:42 09/17/21 04:42 Sepsis Event Note - Evaluation Sepsis Screening Result: No Definite Risk - Focused Exam Vital Signs: Vital Signs Temp Pulse Pulse Resp BP BP Pulse Ox 09/17/21 11:23 36.5 C 77 18 102/32 L 92 L 09/17/21 09:30 69 106/40 L 09/17/21 06:55 36.8 C 69 16 107/74 97 09/17/21 02:00 36.0 C L 67 16 123/46 L 96 - Problem List & Annotations (1) Spinal stenosis at L4-L5 level SNOMED Code(s): 79509689 Code(s): M48.061 - SPINAL STENOSIS, LUMBAR REGION WITHOUT NEUROGENIC LISHA Status: Acute Current Visit: Yes (2) Weakness SNOMED Code(s): 90323573 Code(s): R53.1 - WEAKNESS Status: Acute Current Visit: No (3) CAD (coronary artery disease), [place] coronary artery SNOMED Code(s): 762694242 Code(s): I25.10 - ATHSCL HEART DISEASE OF [place] CORONARY ARTERY W/O ANG PCTRS Status: Chronic Current Visit: No Qualifiers: [place] vs. transplanted heart: [place] heart Associated angina: without ang mary beth Qualified Code(s): I25.10 - Atherosclerotic heart disease of [place] c oronary artery without angina pectoris (4) CKD (chronic kidney disease), stage III SNOMED Code(s): 868892121 Code(s): N18.30 - CHRONIC KIDNEY DISEASE, STAGE 3 UNSPECIFIED Status: Chronic Current Visit: No Qualifiers: Chronic kidney disease stage 3 subtype: stage 3b (GFR 30-44) Qualified Code(s): N18.32 - Chronic kidney disease, stage 3b (5) MARGRET on CPAP SNOMED Code(s): 75117986 Code(s): G47.33 - OBSTRUCTIVE SLEEP APNEA (ADULT) (PEDIATRIC); Z99.89 - DEPENDENCE ON OTHER ENABLING MACHINES AND DEVICES Status: Chronic Current Visit: No (6) Type 2 diabetes mellitus SNOMED Code(s): 75635021 Code(s): E11.9 - TYPE 2 DIABETES MELLITUS WITHOUT COMPLICATIONS Status: Chronic Current Visit: No Qualifiers: Diabetes mellitus manager intermediate insulin use: without jail use Diabetes mellitus complication status: without complication Qualified Code(s): E11.9 - Type 2 diabetes mellitus without complications (7) (HFpEF) heart failure with preserved ejection fraction SNOMED Code(s): 384884080 Code(s): I50.30 - UNSPECIFIED DIASTOLIC (CONGESTIVE) HEART FAILURE Status: Chronic Current Visit: Yes Qualifiers: Heart failure chronicity: chronic Qualified Code(s): I50.32 - Chronic diastolic (congestive) heart failure - Problem List Review Problem List Initiated/Reviewed/Updated: Yes - My Orders Last 24 Hours: My Active Orders 09/16/21 Dinner Regular Diet [DIET] 09/16/21 17:46 Resuscitation Status Routine 09/16/21 18:19 HYDROmorphone [Dilaudid] 2 mg PO Q4H PRN LORazepam [Ativan] 0.5 mg IVPUSH Q4H PRN Magnesium Hydroxide [Milk of Magnesia] 30 ml PO Q12H PRN Ondansetron [Zofran ODT] 4 mg PO Q6H PRN Ondansetron [Zofran] 4 mg IV Q6H PRN 09/16/21 18:19 Patient Status [ADT] Routine Intake and Output [RC] QSHIFT Notify Provider Vital Signs [RC] ASDIRECTED Oxygen Therapy [RC] PRN Vital Signs [RC] Q4H OT Evaluation and Treatment [CONS] Routine PT Evaluation and Treatment [CONS] Routine 09/16/21 21:00 Acetaminophen [Tylenol Extra Strength] 1,000 mg PO TID Docusate Sodium/Sennosides [Senna Plus] 1 tab PO BID Melatonin 9 mg PO BEDTIME 09/17/21 08:00 Furosemide [Lasix] 40 mg PO BIDDIURETIC 09/17/21 08:12 Royer Bandage [RC] ROUTINE Communication Order [RC] DAILY - Plan Plan:: ASSESSMENT AND PLAN - Severe spinal stenosis at multiple levels-significant pain resulting in extreme difficulty with any sort of mobility. Comfortable only when laying on his back. I think he would benefit from an outpatient evaluation by a neurosurgeon though I am not sure if surgery would be offered to him. Right now he is not moving well enough to undergo surgery. Hopefully we can get his pain under control and get into some rehab and then the follow-up that he needs. -Scheduled acetaminophen -As needed hydromorphone -Physical and Occupational Therapy -Activity as tolerated Heart failure with preserved ejection fraction-some lower extremity edema but overall appears to be fairly well compensated. -Continue diuretics and medical management -Start Royer wraps for compression Coronary artery disease-no active symptoms. -Medical management Obstructive sleep apnea-uses CPAP at home. -Obtain home CPAP if possible Type 2 diabetes mellitus-controlled at home. -Continue home medications Maintenance issues - -DVT prophylaxis-mechanical with Royer wraps -GI prophylaxis-PPI -Nutrition-regular Disposition -I anticipate discharge to the shelter for subacute rehab after the hospital stay Cuong Pitts M.D.
[2021-09-17] MEDS: Melatonin 3 MG Tab PO SCH (20:37)
[2021-09-18] MEDS: atorvaSTATin 20 MG Tab PO SCH (09:26)
[2021-09-18] MEDS: Magnesium Oxide 400 MG Tab PO SCH (09:26)
[2021-09-18] MEDS: buPROPion 100 MG Tab PO SCH ×2 (09:26→20:33)
[2021-09-18] MEDS: Gabapentin 300 MG Cap PO SCH ×2 (09:26→20:33)
[2021-09-18] MEDS: Cyanocobalamin (Vitamin B12) 1,000 MCG Tab PO SCH (09:26)
[2021-09-18] MEDS: Multivitamins with Iron/Calcium/Folic Acid/Minerals Tab PO SCH (09:26)
[2021-09-18] MEDS: Tamsulosin 0.4 MG Cap.ER PO SCH (09:27)
[2021-09-18] MEDS: Clopidogrel 75 MG Tab PO SCH (09:27)
[2021-09-18] MEDS: Potassium Chloride 20 MEQ Tab.ER PO SCH (09:27)
[2021-09-18] MEDS: Acetaminophen 500 MG Tab PO SCH ×3 (09:27→20:33)
[2021-09-18] MEDS: Furosemide 40 MG Tab PO SCH (09:27)
[2021-09-18] MEDS: Metoprolol Tartrate 50 MG Tab PO SCH (09:27)
[2021-09-18] MEDS: predniSONE 5 MG Tab PO SCH (09:28)
[2021-09-18] MEDS: Aspirin 81 MG Tab.EC PO SCH (09:28)
[2021-09-18] MEDS: Nystatin Topical Powder 15 GM Bottle TOP SCH ×2 (09:29→20:33)
[2021-09-18] MEDS: HYDROmorphone 2 MG Tab PO PRN ×2 (09:38→13:39)
--- NOTE | 2021-09-18 12:36 | PCM.PN ---
- General Info Date of Service: 09/18/21 Subjective Update: No acute events overnight. No significant delirium has been noted. Patient is sitting up in the chair today. He did require the [place] steady to get there but did well per nursing report. He did report a fair amount of pain with the transfer but thinks overall he is doing better. Appetite acceptable. No fevers. Blood pressures have been on the low side and his diuretics have been held. Functional Status: Reports: Pain Controlled - Review of Systems General: Reports: Weakness Musculoskeletal: Reports: Back Pain - Patient Data Vitals - Most Recent: Last Vital Signs Temp 35.8 C L 09/18/21 10:20 Pulse 75 09/18/21 10:20 Resp 18 09/18/21 10:20 BP 109/44 L 09/18/21 10:20 Pulse Ox 96 09/18/21 10:20 Weight - Most Recent: 117.027 kg I&O - Last 24 Hours: Intake & Output 09/17/21 09/18/21 09/18/21 22:59 06:59 14:59 Intake Total 360 260 Output Total 200 100 Balance 160 -100 260 Med Orders - Current: Current Medications Acetaminophen (Acetaminophen 500 Mg Tab) 1,000 mg PO TID [facility] Last Admin: 09/18/21 09:27 Dose: 1,000 mg Documented by: Aspirin (Aspirin 81 Mg Tab.Ec) 81 mg PO DAILY [facility] Last Admin: 09/18/21 09:28 Dose: 81 mg Documented by: Atorvastatin Calcium (Atorvastatin 20 Mg Tab) 80 mg PO DAILY [facility] Last Admin: 09/18/21 09:26 Dose: 80 mg Documented by: Bupropion HCl (Bupropion 100 Mg Tab) 100 mg PO BID [facility] Last Admin: 09/18/21 09:26 Dose: 100 mg Documented by: Clopidogrel Bisulfate (Clopidogrel 75 Mg Tab) 75 mg PO DAILY [facility] Last Admin: 09/18/21 09:27 Dose: 75 mg Documented by: Cyanocobalamin (Cyanocobalamin (Vitamin B12) 1,000 Mcg Tab) 2,000 mcg PO DAILY [facility] Last Admin: 09/18/21 09:26 Dose: 2,000 mcg Documented by: Gabapentin (Gabapentin 300 Mg Cap) 300 mg PO BID [facility] Last Admin: 09/18/21 09:26 Dose: 300 mg Documented by: Hydromorphone HCl (Hydromorphone 2 Mg Tab) 2 mg PO Q4H PRN PRN Reason: Pain Last Admin: 09/18/21 09:38 Dose: 2 mg Documented by: Lorazepam (Lorazepam 2 Mg/Ml Sdv) 0.5 mg IVPUSH Q4H PRN PRN Reason: Nausea/Vomiting Magnesium Hydroxide (Magnesium Hydroxide 400 Mg/5 Ml Susp 30 Ml Cup) 30 ml PO Q12H PRN PRN Reason: Constipation Magnesium Oxide (Magnesium Oxide 400 Mg Tab) 400 mg PO DAILY [facility] Last Admin: 09/18/21 09:26 Dose: 400 mg Documented by: Melatonin (Melatonin 3 Mg Tab) 9 mg PO BEDTIME [facility] Last Admin: 09/17/21 20:37 Dose: 9 mg Documented by: Metoprolol Tartrate (Metoprolol Tartrate 25 Mg Tab) 25 mg PO BID [facility] Multivitamins/Minerals (Multivitamins With Iron/Calcium/Folic Acid/Minerals Tab) 1 tab PO DAILY [facility] Last Admin: 09/18/21 09:26 Dose: 1 tab Documented by: Nitroglycerin (Nitroglycerin 0.4 Mg Tab.Sl) 0.4 mg SL ASDIRECTED [facility] Non-Formulary Medication (Cranberry [Cranberry]) 500 mg PO DAILY [facility] Last Admin: 09/16/21 10:36 Dose: 500 mg Documented by: Nystatin (Nystatin Topical Powder 15 Gm Bottle) 0 gm TOP BID [facility] Last Admin: 09/18/21 09:29 Dose: 1 applic Documented by: Ondansetron HCl (Ondansetron 4 Mg/2 Ml Sdv) 4 mg IV Q6H PRN PRN Reason: Nausea/Vomiting Ondansetron HCl (Ondansetron 4 Mg Tab.Dis) 4 mg PO Q6H PRN PRN Reason: Nausea able to take PO Polyethylene Glycol (Polyethylene Glycol 3350 Powder 17 Gm Packet) 17 gm PO DAILY PRN PRN Reason: Constipation Potassium Chloride (Potassium Chloride 20 Meq Tab.Er) 20 meq PO DAILY [facility] Last Admin: 09/18/21 09:27 Dose: 20 meq Documented by: Prednisone (Prednisone 5 Mg Tab) 15 mg PO WITHBREAKFAST [facility] Last Admin: 09/18/21 09:28 Dose: 15 mg Documented by: Senna/Docusate Sodium (Docusate Sodium/Sennosides 50-8.6 Mg Tab) 1 tab PO BID [facility] Last Admin: 09/18/21 09:26 Dose: 1 tab Documented by: Tamsulosin HCl (Tamsulosin 0.4 Mg Cap.Er) 0.4 mg PO DAILY [facility] Last Admin: 09/18/21 09:27 Dose: 0.4 mg Documented by: Discontinued Medications Acetaminophen (Acetaminophen 500 Mg Tab) 1,000 mg PO BEDTIME [facility] Last Admin: 09/15/21 21:06 Dose: 1,000 mg Documented by: Furosemide (Furosemide 20 Mg Tab) 20 mg PO DAILY [facility] Last Admin: 09/16/21 10:34 Dose: Not Given Documented by: Furosemide (Furosemide 20 Mg Tab) 40 mg PO DAILY [facility] Last Admin: 09/16/21 10:34 Dose: 40 mg Documented by: Furosemide (Furosemide 40 Mg Tab) 40 mg PO BIDDIURETIC [facility] Last Admin: 09/18/21 09:27 Dose: 40 mg Documented by: Hydromorphone HCl (Hydromorphone 1 Mg/Ml Syringe) 1 mg IM ONETIME ONE Stop: 09/15/21 12:33 Last Admin: 09/15/21 13:20 Dose: 1 mg Documented by: Hydromorphone HCl (Hydromorphone 1 Mg/Ml Syringe) 1 mg IM ONETIME ONE Stop: 09/15/21 16:10 Last Admin: 09/15/21 16:39 Dose: 1 mg Documented by: Ketorolac Tromethamine (Ketorolac 30 Mg/Ml Sdv) 30 mg IM ONETIME ONE Stop: 09/16/21 10:17 Last Admin: 09/16/21 10:46 Dose: 30 mg Documented by: Metoprolol Tartrate (Metoprolol Tartrate 50 Mg Tab) 50 mg PO BID [facility] Last Admin: 09/18/21 09:27 Dose: 50 mg Documented by: Non-Formulary Medication (Atorvastatin [Lipitor]) 80 mg PO DAILY [facility] Last Admin: 09/16/21 10:33 Dose: 80 mg Documented by: Non-Formulary Medication (Docusate Sodium [Stool Softener]) 500 mg PO BID [facility] Last Admin: 09/16/21 10:42 Dose: Not Given Documented by: Non-Formulary Medication (Magnesium Oxide [Magnesium]) 400 mg PO DAILY [facility] Last Admin: 09/16/21 10:40 Dose: 400 mg Documented by: Non-Formulary Medication (Multivitamin [Multi-Vitamin Daily]) 1 tab PO DAILY [facility] Last Admin: 09/16/21 10:37 Dose: 1 tab Documented by: Non-Formulary Medication ([place]-3 Fatty Acids [Fish Oil]) 1,000 mg PO DAILY [facility] Last Admin: 09/16/21 10:37 Dose: 1,000 mg Documented by: Non-Formulary Medication (Probenecid [Probenecid]) 500 mg PO BID [facility] Last Admin: 09/16/21 10:38 Dose: 500 mg Documented by: Nystatin (Nystatin Topical Powder 15 Gm Bottle) 0 gm TOP BID [facility] Last Admin: 09/16/21 22:40 Dose: 1 applic Documented by: Pantoprazole Sodium (Pantoprazole 40 Mg Tab.Cr) 40 mg PO DAILY [facility] Last Admin: 09/16/21 10:42 Dose: 40 mg Documented by: Potassium Chloride (Potassium Chloride 10 Meq Cap.Er) 20 meq PO DAILY [facility] Last Admin: 09/16/21 10:38 Dose: 20 meq Documented by: - Exam Quality Assessment: No: Supplemental Oxygen General: Alert, Oriented, Cooperative, No Acute Distress Lungs: Normal Respiratory Effort GI/Abdominal Exam: Soft, No Distention Extremities: Other (both lower legs wrapped with ROYER wraps) Psy/Mental Status: Alert, Normal Affect - Patient Data Result Diagrams: 09/17/21 04:42 09/17/21 04:42 Sepsis Event Note - Evaluation Sepsis Screening Result: No Definite Risk - Focused Exam Vital Signs: Vital Signs Temp Pulse Pulse Resp BP BP Pulse Ox 09/18/21 10:20 35.8 C L 75 18 109/44 L 96 09/18/21 09:27 70 112/46 L 09/18/21 07:14 35.8 C L 70 16 112/46 L 95 09/18/21 04:00 36.1 C 70 16 105/46 L 93 L - Problem List & Annotations (1) Spinal stenosis at L4-L5 level SNOMED Code(s): 33510636 Code(s): M48.061 - SPINAL STENOSIS, LUMBAR REGION WITHOUT NEUROGENIC LISHA Status: Acute Current Visit: Yes (2) Weakness SNOMED Code(s): 95492528 Code(s): R53.1 - WEAKNESS Status: Acute Current Visit: No (3) CAD (coronary artery disease), [place] coronary artery SNOMED Code(s): 011372656 Code(s): I25.10 - ATHSCL HEART DISEASE OF [place] CORONARY ARTERY W/O ANG PCTRS Status: Chronic Current Visit: No Qualifiers: [place] vs. transplanted heart: [place] heart Associated angina: without angina Qualified Code(s): I25.10 - Atherosclerotic heart disease of [place] coronary artery without angina pectoris (4) CKD (chronic kidney disease), stage III SNOMED Code(s): 752761356 Code(s): N18.30 - CHRONIC KIDNEY DISEASE, STAGE 3 UNSPECIFIED Status: Chronic Current Visit: No Qualifiers: Chronic kidney disease stage 3 subtype: stage 3b (GFR 30-44) Qualified Code(s): N18.32 - Chronic kidney disease, stage 3b (5) MARGRET on CPAP SNOMED Code(s): 68343204 Code(s): G47.33 - OBSTRUCTIVE SLEEP APNEA (ADULT) (PEDIATRIC); Z99.89 - DEPENDENCE ON OTHER ENABLING MACHINES AND DEVICES Status: Chronic Current Visit: No (6) Type 2 diabetes mellitus SNOMED Code(s): 31260053 Code(s): E11.9 - TYPE 2 DIABETES MELLITUS WITHOUT COMPLICATIONS Status: Chronic Current Visit: No Qualifiers: Diabetes mellitus terminal block assembler insulin use: without halfway use Diabetes mellitus complication status: without complication Qualified Code(s): E11.9 - Type 2 diabetes mellitus without complications (7) (HFpEF) heart failure with preserved ejection fraction SNOMED Code(s): 608250920 Code(s): I50.30 - UNSPECIFIED DIASTOLIC (CONGESTIVE) HEART FAILURE Status: Chronic Current Visit: Yes Qualifiers: Heart failure chronicity: chronic Qualified Code(s): I50.32 - Chronic [place] (congestive) heart failure - Problem List Review Problem List Initiated/Reviewed/Updated: Yes - My Orders Last 24 Hours: My Active Orders 09/18/21 21:00 Metoprolol Tartrate [Lopressor] 25 mg PO BID 09/19/21 05:00 BASIC METABOLIC PANEL,BMP [CHEM] Timed CBC W/O DIFF,HEMOGRAM [HEME] Timed (1) - Plan Plan:: ASSESSMENT AND PLAN - Severe spinal stenosis at multiple levels-significant pain resulting in extreme difficulty with any sort of mobility. Pain seems a little better today but mobility is still severely impaired. He was able to get up to the chair. Seems to be tolerating the hydromorphone well without any significant delirium. -Scheduled acetaminophen -As needed hydromorphone -Physical and Occupational Therapy -Activity as tolerated Heart failure with preserved ejection fraction-well compensated and possibly even a little bit on the dry side intravascularly. -Continue beta-nuno with reduced dose -Hold diuretics today -Royer wraps for compression Coronary artery disease-no active symptoms. -Medical management Obstructive sleep apnea-uses CPAP at home. -Obtain home CPAP if possible Type 2 diabetes mellitus-controlled. -Continue home medications Maintenance issues - -DVT prophylaxis-mechanical with Royer wraps -GI prophylaxis-PPI -Nutrition-regular Disposition -I anticipate discharge to the senior care for subacute rehab after the hospital stay, probably on Monday if stable over the weekend Cuong Pitts M.D.
[2021-09-18] MEDS: Melatonin 3 MG Tab PO SCH (20:33)
[2021-09-18] MEDS: Metoprolol Tartrate 25 MG Tab PO SCH (20:36)
[2021-09-19] MEDS: HYDROmorphone 2 MG Tab PO PRN ×3 (07:53→16:20)
[2021-09-19] MEDS: predniSONE 5 MG Tab PO SCH (07:54)
[2021-09-19] MEDS: Cyanocobalamin (Vitamin B12) 1,000 MCG Tab PO SCH (08:02)
[2021-09-19] MEDS: Acetaminophen 500 MG Tab PO SCH ×3 (08:03→20:54)
[2021-09-19] MEDS: Aspirin 81 MG Tab.EC PO SCH (08:03)
[2021-09-19] MEDS: Multivitamins with Iron/Calcium/Folic Acid/Minerals Tab PO SCH (08:04)
[2021-09-19] MEDS: Gabapentin 300 MG Cap PO SCH ×2 (08:04→20:53)
[2021-09-19] MEDS: Magnesium Oxide 400 MG Tab PO SCH (08:04)
[2021-09-19] MEDS: atorvaSTATin 20 MG Tab PO SCH (08:04)
[2021-09-19] MEDS: Clopidogrel 75 MG Tab PO SCH (08:04)
[2021-09-19] MEDS: Tamsulosin 0.4 MG Cap.ER PO SCH (08:04)
[2021-09-19] MEDS: buPROPion 100 MG Tab PO SCH ×2 (08:04→20:55)
[2021-09-19] MEDS: Potassium Chloride 20 MEQ Tab.ER PO SCH (08:04)
[2021-09-19] MEDS: Metoprolol Tartrate 25 MG Tab PO SCH ×2 (08:04→20:57)
[2021-09-19] MEDS ORDERED: DULAGLUTIDE 1.5 MG/0.5 ML SUBCUT SCH (09:00)
--- NOTE | 2021-09-19 10:55 | PCM.PN ---
- General Info Date of Service: 09/19/21 Subjective Update: No acute events overnight. Pain control has been acceptable. Very comfortable at rest but does have an increase in pain with any activity. Seems to be tolerating the pain medication well with no hallucinations or agitation. Blood pressure has been stable with reduction in medications yesterday. Plan is for him to go to the transitional care unit for rehab tomorrow. Family has follow- up appointments with primary care and orthopedics scheduled for the end of the week. Functional Status: Reports: Pain Controlled, Tolerating Diet - Review of Systems General: Reports: Weakness Musculoskeletal: Reports: Back Pain - Patient Data Vitals - Most Recent: Last Vital Signs Temp 36.1 C 09/19/21 07:00 Pulse 68 09/19/21 08:04 Resp 18 09/19/21 07:00 BP 117/47 L 09/19/21 08:04 Pulse Ox 94 L 09/19/21 07:00 Weight - Most Recent: 117.027 kg I&O - Last 24 Hours: Intake & Output 09/18/21 09/19/21 09/19/21 23:59 06:59 14:59 Output Total Balance Lab Results Last 24 Hours: Laboratory Results - last 24 hr 09/19/21 09/19/21 Range/Units 05:45 05:45 WBC 7.8 (4.5-11.0) K/uL RBC 3.74 L (4.30-5.90) M/uL Hgb 11.0 L (12.0-15.0) g/dL Hct 34.8 L (40.0-54.0) % MCV 93 (80-98) fL MCH 29 (27-31) pg MCHC 32 (32-36) % Plt Count 156 (150-400) K/uL Sodium 141 (140-148) mmol/L Potassium 3.9 (3.6-5.2) mmol/L Chloride 105 (100-108) mmol/L Carbon Dioxide 28 (21-32) mmol/L Anion Gap 7.6 (5.0-14.0) mmol/L BUN 32 H (7-18) mg/dL Creatinine 1.7 H (0.8-1.3) mg/dL Est Cr Clr Drug Dosing 36.91 mL/min Estimated GFR (MDRD) 39 L (>60) Glucose 97 (74-106) mg/dL Calcium 8.7 (8.5-10.1) mg/dL Med Orders - Current: Current Medications Acetaminophen (Acetaminophen 500 Mg Tab) 1,000 mg PO TID [facility] Last Admin: 09/19/21 08:03 Dose: 1,000 mg Documented by: Aspirin (Aspirin 81 Mg Tab.Ec) 81 mg PO DAILY [facility] Last Admin: 09/19/21 08:03 Dose: 81 mg Documented by: Atorvastatin Calcium (Atorvastatin 20 Mg Tab) 80 mg PO DAILY [facility] Last Admin: 09/19/21 08:04 Dose: 80 mg Documented by: Bupropion HCl (Bupropion 100 Mg Tab) 100 mg PO BID [facility] Last Admin: 09/19/21 08:04 Dose: 100 mg Documented by: Clopidogrel Bisulfate (Clopidogrel 75 Mg Tab) 75 mg PO DAILY [facility] Last Admin: 09/19/21 08:04 Dose: 75 mg Documented by: Cyanocobalamin (Cyanocobalamin (Vitamin B12) 1,000 Mcg Tab) 2,000 mcg PO DAILY [facility] Last Admin: 09/19/21 08:02 Dose: 2,000 mcg Documented by: Gabapentin (Gabapentin 300 Mg Cap) 300 mg PO BID [facility] Last Admin: 09/19/21 08:04 Dose: 300 mg Documented by: Hydromorphone HCl (Hydromorphone 2 Mg Tab) 2 mg PO Q4H PRN PRN Reason: Pain Last Admin: 09/19/21 07:53 Dose: 2 mg Documented by: Lorazepam (Lorazepam 2 Mg/Ml Sdv) 0.5 mg IVPUSH Q4H PRN PRN Reason: Nausea/Vomiting Magnesium Hydroxide (Magnesium Hydroxide 400 Mg/5 Ml Susp 30 Ml Cup) 30 ml PO Q12H PRN PRN Reason: Constipation Magnesium Oxide (Magnesium Oxide 400 Mg Tab) 400 mg PO DAILY [facility] Last Admin: 09/19/21 08:04 Dose: 400 mg Documented by: Melatonin (Melatonin 3 Mg Tab) 9 mg PO BEDTIME [facility] Last Admin: 09/18/21 20:33 Dose: 9 mg Documented by: Metoprolol Tartrate (Metoprolol Tartrate 25 Mg Tab) 25 mg PO BID [facility] Last Admin: 09/19/21 08:04 Dose: 25 mg Documented by: Multivitamins/Minerals (Multivitamins With Iron/Calcium/Folic Acid/Minerals Tab) 1 tab PO DAILY [facility] Last Admin: 09/19/21 08:04 Dose: 1 tab Documented by: Nitroglycerin (Nitroglycerin 0.4 Mg Tab.Sl) 0.4 mg SL ASDIRECTED [facility] Non-Formulary Medication (Cranberry [Cranberry]) 500 mg PO DAILY [facility] Last Admin: 09/16/21 10:36 Dose: 500 mg Documented by: Nystatin (Nystatin Topical Powder 15 Gm Bottle) 0 gm TOP BID [facility] Last Admin: 09/18/21 20:33 Dose: 1 applic Documented by: Ondansetron HCl (Ondansetron 4 Mg/2 Ml Sdv) 4 mg IV Q6H PRN PRN Reason: Nausea/Vomiting Ondansetron HCl (Ondansetron 4 Mg Tab.Dis) 4 mg PO Q6H PRN PRN Reason: Nausea able to take PO Polyethylene Glycol (Polyethylene Glycol 3350 Powder 17 Gm Packet) 17 gm PO DAILY PRN PRN Reason: Constipation Potassium Chloride (Potassium Chloride 20 Meq Tab.Er) 20 meq PO DAILY [facility] Last Admin: 09/19/21 08:04 Dose: 20 meq Documented by: Prednisone (Prednisone 5 Mg Tab) 15 mg PO WITHBREAKFAST [facility] Last Admin: 09/19/21 07:54 Dose: 15 mg Documented by: Senna/Docusate Sodium (Docusate Sodium/Sennosides 50-8.6 Mg Tab) 1 tab PO BID [facility] Last Admin: 09/19/21 08:04 Dose: 1 tab Documented by: Tamsulosin HCl (Tamsulosin 0.4 Mg Cap.Er) 0.4 mg PO DAILY [facility] Last Admin: 09/19/21 08:04 Dose: 0.4 mg Documented by: Discontinued Medications Acetaminophen (Acetaminophen 500 Mg Tab) 1,000 mg PO BEDTIME [facility] Last Admin: 09/15/21 21:06 Dose: 1,000 mg Documented by: Furosemide (Furosemide 20 Mg Tab) 20 mg PO DAILY [facility] Last Admin: 09/16/21 10:34 Dose: Not Given Documented by: Furosemide (Furosemide 20 Mg Tab) 40 mg PO DAILY [facility] Last Admin: 09/16/21 10:34 Dose: 40 mg Documented by: Furosemide (Furosemide 40 Mg Tab) 40 mg PO BIDDIURETIC [facility] Last Admin: 09/18/21 09:27 Dose: 40 mg Documented by: Hydromorphone HCl (Hydromorphone 1 Mg/Ml Syringe) 1 mg IM ONETIME ONE Stop: 09/15/21 12:33 Last Admin: 09/15/21 13:20 Dose: 1 mg Documented by: Hydromorphone HCl (Hydromorphone 1 Mg/Ml Syringe) 1 mg IM ONETIME ONE Stop: 09/15/21 16:10 Last Admin: 09/15/21 16:39 Dose: 1 mg Documented by: Ketorolac Tromethamine (Ketorolac 30 Mg/Ml Sdv) 30 mg IM ONETIME ONE Stop: 09/16/21 10:17 Last Admin: 09/16/21 10:46 Dose: 30 mg Documented by: Metoprolol Tartrate (Metoprolol Tartrate 50 Mg Tab) 50 mg PO BID [facility] Last Admin: 09/18/21 09:27 Dose: 50 mg Documented by: Non-Formulary Medication (Atorvastatin [Lipitor]) 80 mg PO DAILY [facility] Last Admin: 09/16/21 10:33 Dose: 80 mg Documented by: Non-Formulary Medication (Docusate Sodium [Stool Softener]) 500 mg PO BID [facility] Last Admin: 09/16/21 10:42 Dose: Not Given Documented by: Non-Formulary Medication (Magnesium Oxide [Magnesium]) 400 mg PO DAILY [facility] Last Admin: 09/16/21 10:40 Dose: 400 mg Documented by: Non-Formulary Medication (Multivitamin [Multi-Vitamin Daily]) 1 tab PO DAILY [facility] Last Admin: 09/16/21 10:37 Dose: 1 tab Documented by: Non-Formulary Medication ([place]-3 Fatty Acids [Fish Oil]) 1,000 mg PO DAILY [facility] Last Admin: 09/16/21 10:37 Dose: 1,000 mg Documented by: Non-Formulary Medication (Probenecid [Probenecid]) 500 mg PO BID [facility] Last Admin: 09/16/21 10:38 Dose: 500 mg Documented by: Nystatin (Nystatin Topical Powder 15 Gm Bottle) 0 gm TOP BID [facility] Last Admin: 09/16/21 22:40 Dose: 1 applic Documented by: Pantoprazole Sodium (Pantoprazole 40 Mg Tab.Cr) 40 mg PO DAILY [facility] Last Admin: 09/16/21 10:42 Dose: 40 mg Documented by: Potassium Chloride (Potassium Chloride 10 Meq Cap.Er) 20 meq PO DAILY [facility] Last Admin: 09/16/21 10:38 Dose: 20 meq Documented by: - Exam Quality Assessment: No: Supplemental Oxygen General: Alert, Oriented, Cooperative, No Acute Distress Lungs: Normal Respiratory Effort GI/Abdominal Exam: No Distention Extremities: No Pedal Edema Skin: Warm, Dry, Other (chronic venous stasis with excoriations ) Psy/Mental Status: Alert, Normal Affect - Patient Data Lab Results Last 24 hrs: Laboratory Results - last 24 hr 09/19/21 09/19/21 Range/Units 05:45 05:45 WBC 7.8 (4.5-11.0) K/uL RBC 3.74 L (4.30-5.90) M/uL Hgb 11.0 L (12.0-15.0) g/dL Hct 34.8 L (40.0-54.0) % MCV 93 (80-98) fL MCH 29 (27-31) pg MCHC 32 (32-36) % Plt Count 156 (150-400) K/uL Sodium 141 (140-148) mmol/L Potassium 3.9 (3.6-5.2) mmol/L Chloride 105 (100-108) mmol/L Carbon Dioxide 28 (21-32) mmol/L Anion Gap 7.6 (5.0-14.0) mmol/L BUN 32 H (7-18) mg/dL Creatinine 1.7 H (0.8-1.3) mg/dL Est Cr Clr Drug Dosing 36.91 mL/min Estimated GFR (MDRD) 39 L (>60) Glucose 97 (74-106) mg/dL Calcium 8.7 (8.5-10.1) mg/dL Result Diagrams: 09/19/21 05:45 09/19/21 05:45 Sepsis Event Note - Evaluation Sepsis Screening Result: No Definite Risk - Focused Exam Vital Signs: Vital Signs Temp Pulse Pulse Resp BP BP Pulse Ox 09/19/21 08:04 68 117/47 L 09/19/21 07:00 36.1 C 68 18 117/47 L 94 L 09/19/21 02:00 35.6 C L 66 16 110/47 L 98 - Problem List & Annotations (1) Spinal stenosis at L4-L5 level SNOMED Code(s): 00423467 Code(s): M48.061 - SPINAL STENOSIS, LUMBAR REGION WITHOUT NEUROGENIC LISHA Status: Acute Current Visit: Yes (2) Weakness SNOMED Code(s): 80594078 Code(s): R53.1 - WEAKNESS Status: Acute Current Visit: No (3) CAD (coronary artery disease), [place] coronary artery SNOMED Code(s): 212979639 Code(s): I25.10 - ATHSCL HEART DISEASE OF [place] CORONARY ARTERY W/O ANG PCTRS Status: Chronic Current Visit: No Qualifiers: [place] vs. transplanted heart: [place] heart Associated angina: without angina Qualified Code(s): I25.10 - Atherosclerotic heart disease of [place] coronary artery without angina pectoris (4) CKD (chronic kidney disease), stage III SNOMED Code(s): 355199072 Code(s): N18.30 - CHRONIC KIDNEY DISEASE, STAGE 3 UNSPECIFIED Status: Chronic Current Visit: No Qualifiers: Chronic kidney disease stage 3 subtype: stage 3b (GFR 30-44) Qualified Code(s): N18.32 - Chronic kidney disease, stage 3b (5) MARGRET on CPAP SNOMED Code(s): 72990985 Code(s): G47.33 - OBSTRUCTIVE SLEEP APNEA (ADULT) (PEDIATRIC); Z99.89 - DEPENDENCE ON OTHER ENABLING MACHINES AND DEVICES Status: Chronic Current Visit: No (6) Type 2 diabetes mellitus SNOMED Code(s): 74075783 Code(s): E11.9 - TYPE 2 DIABETES MELLITUS WITHOUT COMPLICATIONS Status: Chronic Current Visit: No Qualifiers: Diabetes mellitus moth exterminator insulin use: without moth exterminator use Diabetes mellitus complication status: without complication Qualified Code(s): E11.9 - Type 2 diabetes mellitus without complications (7) (HFpEF) heart failure with preserved ejection fraction SNOMED Code(s): 498827500 Code(s): I50.30 - UNSPECIFIED DIASTOLIC (CONGESTIVE) HEART FAILURE Status: Chronic Current Visit: Yes Qualifiers: Heart failure chronicity: chronic Qualified Code(s): I50.32 - Chronic diastolic (congestive) heart failure - Problem List Review Problem List Initiated/Reviewed/Updated: Yes - My Orders Last 24 Hours: My Active Orders 09/18/21 21:00 Metoprolol Tartrate [Lopressor] 25 mg PO BID - Plan Plan:: ASSESSMENT AND PLAN - Severe spinal stenosis at multiple levels-significant pain resulting in extreme difficulty with any sort of mobility. Pain has been controlled fairly well overall. Still has a fair amount of pain with activity but tolerable. -Scheduled acetaminophen -As needed hydromorphone -Physical and Occupational Therapy -Activity as tolerated Heart failure with preserved ejection fraction-well compensated at this time. -Continue beta-nuno with reduced dose -Continue to hold diuretics -Royer wraps for compression Coronary artery disease-no active symptoms. -Medical management Obstructive sleep apnea-uses CPAP at home. -Obtain home CPAP if possible Type 2 diabetes mellitus-controlled. -Continue home medications Maintenance issues - -DVT prophylaxis-mechanical with Royer wraps -GI prophylaxis-PPI -Nutrition-regular Disposition -I anticipate discharge to the [facility] for subacute rehab after the hospital stay. The plan is for discharge tomorrow with outpatient follow- up later in the week. Cuong Pitts M.D.
[2021-09-19] MEDS: Nystatin Topical Powder 15 GM Bottle TOP SCH ×2 (11:19→20:54)
--- NOTE | 2021-09-19 13:21 | PCM.DCSUM1 ---
Discharge Summary - Hospital Course Brief History: 80-year-old male with history of severe spinal stenosis at multiple levels, heart failure with preserved ejection fraction, coronary artery disease, diabetes who presented with increasing back pain and increasing weakness. He was admitted for management of his severe spinal stenosis, inability to bear weight and severe pain. Diagnosis: Stroke: No - Discharge Data Discharge Date: 09/20/21 Discharge Disposition: DC/Tfer to SNF 03 Condition: Fair - Referral to Home Health Primary Care Physician: PCP None - Discharge Diagnosis/Problem(s) (1) Spinal stenosis at L4-L5 level SNOMED Code(s): 34576408 ICD Code: M48.061 - SPINAL STENOSIS, LUMBAR REGION WITHOUT NEUROGENIC LISHA Status: Acute Current Visit: Yes (2) Weakness SNOMED Code(s): 09874578 ICD Code: R53.1 - WEAKNESS Status: Acute Current Visit: No (3) CAD (coronary artery disease), [place] coronary artery SNOMED Code(s): 917209224 ICD Code: I25.10 - ATHSCL HEART DISEASE OF [place] CORONARY ARTERY W/O ANG PCTRS Status: Chronic Current Visit: No Qualifiers: [place] vs. transplanted heart: [place] heart Associated angina: without angina Qualified Code(s): I25.10 - Atherosclerotic heart disease of [place] coronary artery without angina pectoris (4) CKD (chronic kidney disease), stage III SNOMED Code(s): 739233089 ICD Code: N18.30 - CHRONIC KIDNEY DISEASE, STAGE 3 UNSPECIFIED Status: Chronic Current Visit: No Qualifiers: Chronic kidney disease stage 3 subtype: stage 3b (GFR 30-44) Qualified Code(s): N18.32 - Chronic kidney disease, stage 3b (5) MARGRET on CPAP SNOMED Code(s): 90883117 ICD Code: G47.33 - OBSTRUCTIVE SLEEP APNEA (ADULT) (PEDIATRIC); Z99.89 - DEPENDENCE ON OTHER ENABLING MACHINES AND DEVICES Status: Chronic Current Visit: No (6) Type 2 diabetes mellitus SNOMED Code(s): 36530854 ICD Code: E11.9 - TYPE 2 DIABETES MELLITUS WITHOUT COMPLICATIONS Status: Chronic Current Visit: No Qualifiers: Diabetes mellitus correction insulin use: without joint terminal attack controller use Diabetes mellitus complication status: without complication Qualified Code(s): E11.9 - Type 2 diabetes mellitus without complications (7) (HFpEF) heart failure with preserved ejection fraction SNOMED Code(s): 275479934 ICD Code: I50.30 - UNSPECIFIED DIASTOLIC (CONGESTIVE) HEART FAILURE Status: Chronic Current Visit: Yes Qualifiers: Heart failure chronicity: chronic Qualified Code(s): I50.32 - Chronic diastolic (congestive) heart failure - Patient Summary/Data Consults: Consultations 09/16/21 18:19 OT Evaluation and Treatment [CONS] Routine Please Evaluate and Treat. OT Reason for Consult: ADL's This query below is only for informational purposes and is not editable. Admission Diagnosis/Problem: Weakness PT Evaluation and Treatment [CONS] Routine Please Evaluate and Treat. PT Reason for Consult: Strengthening This query below is only for informational purposes and is not editable. Admission Diagnosis/Problem: Weakness Hospital Course: Jaziel presented to the emergency room with increasing back pain and progressive weakness. Work-up in the emergency room was fairly unremarkable. The patient was in excruciating pain and unable to bear weight. He was admitted to the hospital for further management of known severe spinal stenosis. He was started on a combination of scheduled acetaminophen and hydromorphone for pain control. He had tolerated the hydromorphone while he was in the emergency room. Physical therapy was initiated. Over the next couple of days we did see some improvement in strength. We had decent improvement in pain control though activity did increase his pain a fair amount. The patient has made some gains during the hospital stay and fortunately has tolerated the pain medications well. I think he would benefit from subacute rehab and additional strengthening. Ultimately I think what needs to happen is he should see a surgeon who specializes in back surgery to review risks and potential benefits. For the time being we have had decent control of pain and some improvement in his mobility. The plan is for him to go to subacute rehab. Family has arranged follow-ups with primary care as well as an orthopedic cast specialist in the [facility]. He may benefit from seeing a back specialist as well. He is stable and safe for discharge at this time. Also of note during hospital stay, we noticed a slight increase in his creatinine from baseline as well as lower blood pressures. We did hold his diuretics for a couple of days and ultimately the plan is to decrease these to once a day instead of twice a day. We did also decrease his metoprolol to 25 mg. Vital signs have all been stable after those changes were made. - Patient Instructions Diet: Diabetic Diet Activity: As Tolerated Driving: Do Not Drive (if taking pain pills ) Showering/Bathing: May Shower Notify Provider of: Fever, Increased Pain Other/Special Instructions: 1. You were in the hospital for management of acute right lower back and right buttocks pain related to severe spinal stenosis. Your condition has been improving with pain control and physical therapy provided during the hospital stay. I would recommend subacute rehab for additional strengthening. Ultimately I think you need to see someone who specializes in back surgeries to see if this is an option to improve your pain and functional status. We will utilize scheduled acetaminophen and as needed hydromorphone for pain control. 2. Referral to PT and OT to help improve strength and endurance. 3. Code status - FULL CODE. 4. Compression stockings to both lower legs. On in the morning and off at bedtime - Discharge Plan *PRESCRIPTION DRUG MONITORING PROGRAM REVIEWED*: Not Applicable *COPY OF PRESCRIPTION DRUG MONITORING REPORT IN PATIENT DEMETRICE: Not Applicable Prescriptions/Med Rec: HYDROmorphone [Dilaudid] 2 mg PO Q3H PRN #60 tablet PRN Reason: Pain Metoprolol Tartrate 25 mg PO BID #30 Acetaminophen [Tylenol Extra Strength] 1,000 mg PO TID #200 tablet Home Medications: Home Meds Aspirin [Low Dose Aspirin EC] 81 mg PO DAILY 11/25/16 [History] Dulaglutide [Trulicity] 1.5 mg SQ WEEKLY 11/25/16 [History] [place]-3 Fatty Acids [Fish Oil] 1,000 mg PO DAILY 11/25/16 [History] Tamsulosin [Flomax] 0.4 mg PO DAILY 11/25/16 [History] Potassium Chloride 20 meq PO DAILY 11/29/16 [History] Clopidogrel Bisulfate [Plavix] 75 mg PO DAILY 04/03/19 [History] Cranberry 500 mg PO DAILY 04/03/19 [History] Cyanocobalamin (Vitamin B12) [Vitamin B12] 2,000 mcg PO DAILY 04/03/19 [History] Nitroglycerin 0.4 mg SL ASDIRECTED 04/03/19 [History] atorvaSTATin [Lipitor] 80 mg PO DAILY 04/03/19 [History] Pantoprazole Sodium [Protonix] 40 mg PO DAILY 05/03/21 [History] polyethylene glycoL 3350 [MiraLAX] 17 gm PO DAILY PRN 05/03/21 [History] buPROPion [Wellbutrin] 100 mg PO BID 06/30/21 [History] Docusate Sodium [Stool Softener] 500 mg PO BID 07/21/21 [History] Gabapentin [Neurontin] 300 mg PO BID #60 cap 07/29/21 [Rx] predniSONE 15 mg PO WITHBREAKFAST #90 tablet 07/29/21 [Rx] Furosemide 40 mg PO DAILY 09/15/21 [History] Magnesium Oxide [Magnesium] 400 mg PO DAILY 09/15/21 [History] Multivitamin [Multi-Vitamin Daily] 1 tab PO DAILY 09/15/21 [History] Acetaminophen [Tylenol Extra Strength] 1,000 mg PO TID #200 tablet 09/19/21 [Rx] HYDROmorphone [Dilaudid] 2 mg PO Q3H PRN #60 tablet 09/19/21 [Rx] Metoprolol Tartrate 25 mg PO BID #30 09/19/21 [Rx] Oxygen Therapy Mode: Room Air Patient Handouts: Fall Prevention in the Home, Adult, [id number], Spinal Stenosis, [id number] Forms: ED Department Discharge Referrals: PCP,None [Primary Care Provider] - - Discharge Summary/Plan Comment DC Time >30 min.: Yes Total # of Minutes for Discharge Time: 40-new [place] discharge - Patient Data Vitals - Most Recent: Last Vital Signs Temp 36.2 C 09/19/21 11:00 Pulse 70 09/19/21 11:00 Resp 18 09/19/21 11:00 BP 100/46 L 09/19/21 11:00 Pulse Ox 93 L 09/19/21 11:00 Weight - Most Recent: 117.027 kg I&O - Last 24 hours: Intake & Output 09/18/21 09/19/21 09/19/21 23:59 06:59 14:59 Intake Total 500 Output Total Balance 500 Lab Results - Last 24 hrs: Laboratory Results - last 24 hr 09/19/21 09/19/21 Range/Units 05:45 05:45 WBC 7.8 (4.5-11.0) K/uL RBC 3.74 L (4.30-5.90) M/uL Hgb 11.0 L (12.0-15.0) g/dL Hct 34.8 L (40.0-54.0) % MCV 93 (80-98) fL MCH 29 (27-31) pg MCHC 32 (32-36) % Plt Count 156 (150-400) K/uL Sodium 141 (140-148) mmol/L Potassium 3.9 (3.6-5.2) mmol/L Chloride 105 (100-108) mmol/L Carbon Dioxide 28 (21-32) mmol/L Anion Gap 7.6 (5.0-14.0) mmol/L BUN 32 H (7-18) mg/dL Creatinine 1.7 H (0.8-1.3) mg/dL Est Cr Clr Drug Dosing 36.91 mL/min Estimated GFR (MDRD) 39 L (>60) Glucose 97 (74-106) mg/dL Calcium 8.7 (8.5-10.1) mg/dL Med Orders - Current: Current Medications Acetaminophen (Acetaminophen 500 Mg Tab) 1,000 mg PO TID [facility] Last Admin: 09/19/21 08:03 Dose: 1,000 mg Documented by: Aspirin (Aspirin 81 Mg Tab.Ec) 81 mg PO DAILY [facility] Last Admin: 09/19/21 08:03 Dose: 81 mg Documented by: Atorvastatin Calcium (Atorvastatin 20 Mg Tab) 80 mg PO DAILY [facility] Last Admin: 09/19/21 08:04 Dose: 80 mg Documented by: Bupropion HCl (Bupropion 100 Mg Tab) 100 mg PO BID [facility] Last Admin: 09/19/21 08:04 Dose: 100 mg Documented by: Clopidogrel Bisulfate (Clopidogrel 75 Mg Tab) 75 mg PO DAILY [facility] Last Admin: 09/19/21 08:04 Dose: 75 mg Documented by: Cyanocobalamin (Cyanocobalamin (Vitamin B12) 1,000 Mcg Tab) 2,000 mcg PO DAILY [facility] Last Admin: 09/19/21 08:02 Dose: 2,000 mcg Documented by: Gabapentin (Gabapentin 300 Mg Cap) 300 mg PO BID [facility] Last Admin: 09/19/21 08:04 Dose: 300 mg Documented by: Hydromorphone HCl (Hydromorphone 2 Mg Tab) 2 mg PO Q4H PRN PRN Reason: Pain Last Admin: 09/19/21 11:20 Dose: 2 mg Documented by: Lorazepam (Lorazepam 2 Mg/Ml Sdv) 0.5 mg IVPUSH Q4H PRN PRN Reason: Nausea/Vomiting Magnesium Hydroxide (Magnesium Hydroxide 400 Mg/5 Ml Susp 30 Ml Cup) 30 ml PO Q12H PRN PRN Reason: Constipation Magnesium Oxide (Magnesium Oxide 400 Mg Tab) 400 mg PO DAILY [facility] Last Admin: 09/19/21 08:04 Dose: 400 mg Documented by: Melatonin (Melatonin 3 Mg Tab) 9 mg PO BEDTIME [facility] Last Admin: 09/18/21 20:33 Dose: 9 mg Documented by: Metoprolol Tartrate (Metoprolol Tartrate 25 Mg Tab) 25 mg PO BID [facility] Last Admin: 09/19/21 08:04 Dose: 25 mg Documented by: Multivitamins/Minerals (Multivitamins With Iron/Calcium/Folic Acid/Minerals Tab) 1 tab PO DAILY [facility] Last Admin: 09/19/21 08:04 Dose: 1 tab Documented by: Nitroglycerin (Nitroglycerin 0.4 Mg Tab.Sl) 0.4 mg SL ASDIRECTED [facility] Non-Formulary Medication (Cranberry [Cranberry]) 500 mg PO DAILY [facility] Last Admin: 09/16/21 10:36 Dose: 500 mg Documented by: Nystatin (Nystatin Topical Powder 15 Gm Bottle) 0 gm TOP BID [facility] Last Admin: 09/19/21 11:19 Dose: 1 applic Documented by: Ondansetron HCl (Ondansetron 4 Mg/2 Ml Sdv) 4 mg IV Q6H PRN PRN Reason: Nausea/Vomiting Ondansetron HCl (Ondansetron 4 Mg Tab.Dis) 4 mg PO Q6H PRN PRN Reason: Nausea able to take PO Polyethylene Glycol (Polyethylene Glycol 3350 Powder 17 Gm Packet) 17 gm PO DAILY PRN PRN Reason: Constipation Potassium Chloride (Potassium Chloride 20 Meq Tab.Er) 20 meq PO DAILY [facility] Last Admin: 09/19/21 08:04 Dose: 20 meq Documented by: Prednisone (Prednisone 5 Mg Tab) 15 mg PO WITHBREAKFAST [facility] Last Admin: 09/19/21 07:54 Dose: 15 mg Documented by: Senna/Docusate Sodium (Docusate Sodium/Sennosides 50-8.6 Mg Tab) 1 tab PO BID [facility] Last Admin: 09/19/21 08:04 Dose: 1 tab Documented by: Tamsulosin HCl (Tamsulosin 0.4 Mg Cap.Er) 0.4 mg PO DAILY [facility] Last Admin: 09/19/21 08:04 Dose: 0.4 mg Documented by: Discontinued Medications Acetaminophen (Acetaminophen 500 Mg Tab) 1,000 mg PO BEDTIME [facility] Last Admin: 09/15/21 21:06 Dose: 1,000 mg Documented by: Furosemide (Furosemide 20 Mg Tab) 20 mg PO DAILY [facility] Last Admin: 09/16/21 10:34 Dose: Not Given Documented by: Furosemide (Furosemide 20 Mg Tab) 40 mg PO DAILY [facility] Last Admin: 09/16/21 10:34 Dose: 40 mg Documented by: Furosemide (Furosemide 40 Mg Tab) 40 mg PO BIDDIURETIC [facility] Last Admin: 09/18/21 09:27 Dose: 40 mg Documented by: Hydromorphone HCl (Hydromorphone 1 Mg/Ml Syringe) 1 mg IM ONETIME ONE Stop: 09/15/21 12:33 Last Admin: 09/15/21 13:20 Dose: 1 mg Documented by: Hydromorphone HCl (Hydromorphone 1 Mg/Ml Syringe) 1 mg IM ONETIME ONE Stop: 09/15/21 16:10 Last Admin: 09/15/21 16:39 Dose: 1 mg Documented by: Ketorolac Tromethamine (Ketorolac 30 Mg/Ml Sdv) 30 mg IM ONETIME ONE Stop: 09/16/21 10:17 Last Admin: 09/16/21 10:46 Dose: 30 mg Documented by: Metoprolol Tartrate (Metoprolol Tartrate 50 Mg Tab) 50 mg PO BID [facility] Last Admin: 09/18/21 09:27 Dose: 50 mg Documented by: Non-Formulary Medication (Atorvastatin [Lipitor]) 80 mg PO DAILY [facility] Last Admin: 09/16/21 10:33 Dose: 80 mg Documented by: Non-Formulary Medication (Docusate Sodium [Stool Softener]) 500 mg PO BID [facility] Last Admin: 09/16/21 10:42 Dose: Not Given Documented by: Non-Formulary Medication (Magnesium Oxide [Magnesium]) 400 mg PO DAILY [facility] Last Admin: 09/16/21 10:40 Dose: 400 mg Documented by: Non-Formulary Medication (Multivitamin [Multi-Vitamin Daily]) 1 tab PO DAILY [facility] Last Admin: 09/16/21 10:37 Dose: 1 tab Documented by: Non-Formulary Medication ([place]-3 Fatty Acids [Fish Oil]) 1,000 mg PO DAILY [facility] Last Admin: 09/16/21 10:37 Dose: 1,000 mg Documented by: Non-Formulary Medication (Probenecid [Probenecid]) 500 mg PO BID [facility] Last Admin: 09/16/21 10:38 Dose: 500 mg Documented by: Nystatin (Nystatin Topical Powder 15 Gm Bottle) 0 gm TOP BID [facility] Last Admin: 09/16/21 22:40 Dose: 1 applic Documented by: Pantoprazole Sodium (Pantoprazole 40 Mg Tab.Cr) 40 mg PO DAILY [facility] Last Admin: 09/16/21 10:42 Dose: 40 mg Documented by: Potassium Chloride (Potassium Chloride 10 Meq Cap.Er) 20 meq PO DAILY [facility] Last Admin: 09/16/21 10:38 Dose: 20 meq Documented by:
[2021-09-19] MEDS: Melatonin 3 MG Tab PO SCH (20:53)
[2021-09-20] MEDS: HYDROmorphone 2 MG Tab PO PRN ×2 (08:27→12:19)
[2021-09-20] MEDS: Tamsulosin 0.4 MG Cap.ER PO SCH (09:09)
[2021-09-20] MEDS: Metoprolol Tartrate 25 MG Tab PO SCH (09:09)
[2021-09-20] MEDS: Potassium Chloride 20 MEQ Tab.ER PO SCH (09:09)
[2021-09-20] MEDS: atorvaSTATin 20 MG Tab PO SCH (09:09)
[2021-09-20] MEDS: Aspirin 81 MG Tab.EC PO SCH (09:09)
[2021-09-20] MEDS: predniSONE 5 MG Tab PO SCH (09:09)
[2021-09-20] MEDS: Gabapentin 300 MG Cap PO SCH (09:10)
[2021-09-20] MEDS: Magnesium Oxide 400 MG Tab PO SCH (09:10)
[2021-09-20] MEDS: Cyanocobalamin (Vitamin B12) 1,000 MCG Tab PO SCH (09:10)
[2021-09-20] MEDS: buPROPion 100 MG Tab PO SCH (09:10)
[2021-09-20] MEDS: Clopidogrel 75 MG Tab PO SCH (09:10)
[2021-09-20] MEDS: Acetaminophen 500 MG Tab PO SCH ×2 (09:10→14:18)
[2021-09-20] MEDS: Multivitamins with Iron/Calcium/Folic Acid/Minerals Tab PO SCH (09:10)
[2021-09-20] MEDS: Nystatin Topical Powder 15 GM Bottle TOP SCH (09:20)
[2021-09-20 12:23] VITALS: BP 117/46; PULSE 83
== END 2021-09-20 14:35 | DRG 552 ==
LOC: JP.ED 10:54 → JP.MS 09-16 17:45
PROVIDERS: ADMIT Family Medicine; ATTEND Internal Medicine
DX: M48.061 Spinal stenosis, lumbar region without neurogenic claudication (principal); I50.32 Chronic diastolic (congestive) heart failure; I25.10 Atherosclerotic heart disease of native coronary artery without angina pectoris; N18.32 Chronic kidney disease, stage 3b; E11.22 Type 2 diabetes mellitus with diabetic chronic kidney disease; I50.9 Heart failure, unspecified; G47.33 Obstructive sleep apnea (adult) (pediatric); I25.2 Old myocardial infarction; I11.0 Hypertensive heart disease with heart failure; Z99.89 Dependence on other enabling machines and devices; Z79.82 Long term (current) use of aspirin; Z79.02 Long term (current) use of antithrombotics/antiplatelets; Z79.899 Other long term (current) drug therapy; Z79.52 Long term (current) use of systemic steroids; Z85.828 Personal history of other malignant neoplasm of skin; Z88.8 Allergy status to other drugs, medicaments and biological substances; H91.90 Unspecified hearing loss, unspecified ear; H54.7 Unspecified visual loss; E78.00 Pure hypercholesterolemia, unspecified; Z79.01 Long term (current) use of anticoagulants; Z95.2 Presence of prosthetic heart valve; G47.30 Sleep apnea, unspecified; J45.909 Unspecified asthma, uncomplicated; K21.9 Gastro-esophageal reflux disease without esophagitis; Z86.010 Personal history of colon polyps; E11.21 Type 2 diabetes mellitus with diabetic nephropathy; M19.90 Unspecified osteoarthritis, unspecified site; M10.9 Gout, unspecified; E66.9 Obesity, unspecified; Z90.89 Acquired absence of other organs; Z95.5 Presence of coronary angioplasty implant and graft; Z86.19 Personal history of other infectious and parasitic diseases; Z20.822 Contact with and (suspected) exposure to COVID-19
CPT/HCPCS: 0241U; 36415; 80048; 80053; 81001; 83605; 83880; 85025; 85027; 85651; 96372; 97110; 97140; 97165; 97530; 99284; A9270-GY; J1170; J1885; J7512